=== PATIENT | female | born 1935 | race Caucasian/White ===

== ENCOUNTER 2016-10-14 13:48 | Outpatient (CLI) | payer MEDICARE, BC | END 2016-10-14 13:49 | disposition home or self-care (01) | DX: E78.2 Mixed hyperlipidemia (principal); D50.9 Iron deficiency anemia, unspecified ==

== ENCOUNTER 2017-01-21 08:00 | Outpatient (CLI) | payer MEDICARE, BC | END 2017-01-21 08:01 | DX: I10 Essential (primary) hypertension (principal); R68.89 Other general symptoms and signs; F41.9 Anxiety disorder, unspecified; D50.9 Iron deficiency anemia, unspecified ==

== ENCOUNTER 2017-03-06 12:43 | Outpatient (CLI) | payer MEDICARE, BC ==
--- NOTE | 2017-03-09 08:18 | Mammography Report ---
DIGITAL BILATERAL DIAGNOSTIC MAMMOGRAM: 03/06/2017 CLINICAL HISTORY: This is an 81-year-old female who has no family history of breast cancer. She has h ad no prior breast surgeries. She is now feeling left breast pain and possible lump. COMPARISON: 11/11/2007, 01/16/2009, 04/24/2010, 07/29/2011, 08/11/2012, 11/04/2013, 01/19/2015, 04/30. TECHNIQUE: Craniocaudad and oblique lateral views of each breast were obtained with [facility] full fiel d digital mammography. Mediolateral view of the left breast and axillary exaggerated craniocaudad vie w of the left breast were done to complement the present study. FINDINGS: The breasts are almost entirely composed of fat. No significant clusters of calcification are seen. No significant masses are noted. No change is seen. Although no significant abnormality is detected on patient's mammogram, a left breast ultrasound is b eing recommended to complement the present study. Ultrasound can show abnormalities especially in pat ients with clinical symptoms that are not demonstrable on mammography. IMPRESSION: THE BREASTS APPEAR RADIOGRAPHICALLY BENIGN. FOR REASONS DISCUSSED ABOVE, LEFT BREAST ULTRASOUND IS RECOMMENDED. ULTRASOUND WILL BE DONE TODAY PART OF PATIENT'S EVALUATION. BIRADS CATEGORY 0-INCOMPLETE. NEEDS ADDITIONAL IMAGING EVALUATION. LEFT BREAST ULTRASOUND WILL BE DON E TODAY PART OF PATIENT'S EVALUATION. STANDARD QUALIFYING STATEMENTS 1. This examination was reviewed with the aid of Computer-Aided Detection (CAD). 2. A negative or benign imaging report should not delay biopsy if clinically suspicious findings are present. Consider surgical consultation if warranted. More than 5% of cancers are not identified by manisha vasquez. 3. Dense breasts may obscure an underlying neoplasm. JOB #: [id number] EXT JOB #:[id number]
== END 2017-03-06 12:44 | disposition home or self-care (01) ==
LOC: DI 12:43
PROVIDERS: ATTEND Physician Assistant Medical
DX: N63 Unspecified lump in breast (principal)

== ENCOUNTER 2017-03-06 12:56 | Outpatient (CLI) | payer MEDICARE, BC ==
--- NOTE | 2017-03-06 16:33 | Ultrasound Report ---
THYROID ULTRASOUND: 03/06/2017 CLINICAL HISTORY: Dysphagia unspecified. TECHNIQUE: Real-time scanning was performed with sales representative facility services static images obtained. FINDINGS: Right lobe of the thyroid measures 4.1 cm x 1.4 cm x 1.1 cm for a volume of 3.3 mL. Right lobe of the thyroid shows a well-circumscribed solid nodule in its superior aspect measuring 0.5 cm x 0.3 cm x 0.4 cm. This shows some mildly enhanced vascular flow. Inferior aspect of the right lobe of the thyroid shows another solid nodule measuring 0.5 cm x 0.3 cm x 0.4 cm. Multiple small echogenic areas are noted in this aspect of the nodule. These may represe nt tiny calcifications. They do not shadow. Some mildly enhanced flow is noted in this nodule. The re are some additional even smaller nodules in the right lobe of the thyroid. Some of these are smal ler cystic nodules. Recommend these nodules be followed with repeat thyroid ultrasound in one year f or further evaluation. Left lobe of the thyroid measures 3.7 cm x 1.1 cm x 0.8 cm for a volume of 1.7 mL. Left lobe of the thyroid shows no significant nodules. Thyroid isthmus measures 0.18 cm in its AP diameter. IMPRESSION: SEVERAL SMALL SOLID NODULES ARE NOTED IN THE RIGHT LOBE OF THE THYROID. THE LARGEST ARE NOTED IN THE INFERIOR AND SUPERIOR ASPECT OF THE RIGHT LOBE. THEY EACH MEASURE 0.5 CM X 0.3 CM X 0.4 CM. THEY A RE WELL-CIRCUMSCRIBED AND HYPOECHOIC. THEY SHOULD BE FOLLOWED ACCORDING TO NELDA CRITERIA WITH A REPEA T THYROID ULTRASOUND IN ONE YEAR. THYROID SIZE APPEARS NORMAL BILATERALLY. JOB #: [id number] EXT JOB #:[id number]
--- NOTE | 2017-03-09 08:19 | Ultrasound Report ---
LEFT BREAST ULTRASOUND: 03/06/2017 CLINICAL HISTORY: An 81-year-old female who has had no family history of breast cancer. She has had n o breast surgeries. The patient has developed some tenderness and possible palpable lump in the upper outer quadrant of the left breast and across the left breast. She reports skin thickening in this ar ea as well as tenderness. Mammogram done today showed no significant abnormality. Left breast ultraso und is being done to complement the mammogram. TECHNIQUE: Real-time scanning was performed with medical customer service representative static images obtained. FINDINGS: Left breast ultrasound shows no significant abnormality. No masses are seen. No cysts are noted. The present ultrasound most likely indicates the patient's clinical symptoms do not reflect a signifi cant abnormality. IMPRESSION: NEGATIVE LEFT BREAST ULTRASOUND. BIRADS CATEGORY 1-NEGATIVE. RECOMMENDATION: ANNUAL BILATERAL SCREENING MAMMOGRAPHY. COMMENT: The patient was informed by Dr. Daniels of the benign results and encouraged her to return f or routine screening mammogram in one year. JOB #: [id number] EXT JOB #:
== END 2017-03-06 12:57 | disposition home or self-care (01) ==
LOC: DI 12:56
PROVIDERS: ATTEND Physician Assistant Medical
DX: N63 Unspecified lump in breast (principal); R13.10 Dysphagia, unspecified; E04.2 Nontoxic multinodular goiter
CPT/HCPCS: 76536; 76642

== ENCOUNTER 2017-10-27 07:49 | Outpatient (CLI) | payer MEDICARE, BC ==
[2017-10-27 12:27] LABS: BASOPHILS % (AUTO) 0.8 %; EOSINOPHILS # (AUTO) 0.2 10^3/uL (0.0-0.7); EOSINOPHILS % (AUTO) 4.2 %; HGB - HEMOGLOBIN 13.5 g/dL (12.0-16.0); LYMPHOCYTES # (AUTO) 1.3 10^3/uL (1.5-3.5); LYMPHOCYTES % (AUTO) 32.4 %; MEAN CORPUSCULAR HEMOGLOBIN 33.8 pg (27.0-31.0); MEAN CORPUSCULAR HGB CONC 34.5 g/dL (32.0-36.0); MEAN CORPUSCULAR VOLUME 97.9 fL (81.0-99.0); MEAN PLATELET VOLUME 7.7 fL (7.9-10.8); MONOCYTES # (AUTO) 0.5 10^3/uL (0.0-1.0); MONOCYTES % (AUTO) 13.1 %; NEUTROPHILS % (AUTO) 49.5 %; PLT - PLATELET COUNT 223 10^3/uL (130-450); RED BLOOD COUNT 3.99 10^6/uL (4.20-5.40)
[2017-10-27 14:10] LABS: ALBUMIN 4.1 g/dL (3.2-5.5); ALBUMIN/GLOBULIN RATIO 1.2 (1.0-2.2); ALKALINE PHOSPHATASE 46 IU/L (42-121); ALT ALANINE AMINOTRANSFERASE 18 IU/L (10-60); AST ASPARTATE AMINOTRANSFERASE 32 IU/L (10-42); BILIRUBIN,TOTAL 0.7 mg/dL (0.2-1.0); BUN - BLOOD UREA NITROGEN 18 mg/dL (6-20); CALCIUM 9.2 mg/dL (8.5-10.3); CARBON DIOXIDE - CO2 27 mmol/L (21-32); CHLORIDE 85 mmol/L (101-111); CHOL/HDL RATIO 3.1 (<4.4); CHOLESTEROL 194 mg/dL; CREATININE 0.9 mg/dL (0.4-1.0); GFR - MDRD 60 (>89); GLUCOSE 90 mg/dL (70-100); HDL CHOLESTEROL 62 mg/dL; LDL CHOLESTEROL,CALCULATED 123 mg/dL; SODIUM 124 mmol/L (135-145); TOTAL PROTEIN 7.6 g/dL (6.7-8.2); VLDL CHOLESTEROL 9 mg/dL
== END 2017-10-27 07:50 | disposition home or self-care (01) ==
LOC: LAB.WCP 07:49
PROVIDERS: ATTEND Physician Assistant Medical
DX: I10 Essential (primary) hypertension (principal); D50.9 Iron deficiency anemia, unspecified
CPT/HCPCS: 36415; 80053; 80061; 83721; 85025

== ENCOUNTER 2017-10-27 12:48 | Outpatient (CLI) | payer MEDICARE, BC | END 2017-10-27 12:49 | disposition home or self-care (01) | LOC: DI 12:48 | PROVIDERS: ATTEND Physician Assistant Medical | DX: R01.1 Cardiac murmur, unspecified (principal); I08.3 Combined rheumatic disorders of mitral, aortic and tricuspid valves; I10 Essential (primary) hypertension; D50.9 Iron deficiency anemia, unspecified | CPT/HCPCS: 36415; 80053; 80061; 83721; 85025; 93306 ==

== ENCOUNTER 2017-12-26 07:25 | Emergency (ER) | payer MEDICARE, BC ==
--- NOTE | 2017-12-26 07:55 | ED Physician Documentation ---
PD HPI NVD - Stated complaint Stated Complaint: BLOODY DIARRHEA - Chief complaint Chief Complaint: General - History obtained from History obtained from: Patient - History of Present Illness Timing - onset: How many days ago (6-7) Timing - duration: Days (6-7) Timing - details: Gradual onset, Still present (had persistent diarrhea for 5-6 days and then yesterday took imodium last night and then again overnight. Less to no diarrhea today but did not small output of mucous and some bloody watery small amount. Had some lower abd cramps. Has had intermittent LLQ cramps for the week. Did not note any blood in diarrhea the past week, just today.) Associated symptoms: Abdominal pain (intermittent cramping). No: Fever, Loss of appetite, Weight loss Contributing factors: No: Sick contact, Bad food, Travel, Recent antibiotics, Anticoagulated Similar symptoms before: Has not had sx before Recently seen: Not recently seen Review of Systems Constitutional: denies: Fever, Chills, Myalgias Nose: denies: Rhinorrhea / runny nose, Congestion Throat: denies: Sore throat Cardiac: denies: Chest pain / pressure Respiratory: denies: Cough GI: reports: Abdominal Pain, Diarrhea, Bloody / black stool. denies: Abdominal Swelling, Nausea, Vomiting, Constipation : denies: Dysuria, Frequency Skin: denies: Rash, Lesions Neurologic: reports: Generalized weakness. denies: Focal weakness, Numbness, Near syncope Endocrine: denies: Weight loss, Easy bruising / bleeding PD PAST MEDICAL HISTORY - Past Medical History Cardiovascular: Hypertension Respiratory: None Endocrine/Autoimmune: None GI: None : Incontinence HEENT: None Psych: Anxiety Musculoskeletal: Osteoporosis Derm: None - Past Surgical History Past Surgical History: Yes Ortho: Carpal Tunnel surgery HEENT: Cataracts - Present Medications Home Medications: Ambulatory Orders Medication Instructions Recorded Confirmed ALPRAZolam [Xanax] 0.25 mg PO PRN 03/23/13 04/06/13 Amlodipine Besylate 5 mg PO BID 03/23/13 04/06/13 Citalopram [CeleXA] 20 mg PO DAILY 03/23/1312/26/18 Losartan/Hydrochlorothiazide 1 each PO DAILY 03/23/13 04/06/13 [Losartan-Hctz 100-25 mg Tab] Meloxicam 7.5 mg PO BID 03/23/13 04/06/13 Vit D3-Vit K/Berberine/Hops 1 each PO 03/23/13 04/06/13 [Ostera Tablet] Omeprazole [PriLOSEC] 1 cap PO DAILY 12/26/17 12/26/17 - Allergies Allergies/Adverse Reactions: Allergies Allergy/AdvReac Type Severity Reaction Status Date / Time celecoxib [From Celebrex] Allergy Intermediate Itching Verified 12/26/17 07:38 Penicillins Allergy Rash Verified 12/26/17 07:38 rofecoxib [From Vioxx] Allergy unkown Verified 12/26/17 07:38 Sulfa (Sulfonamide Allergy Rash Verified 12/26/17 07:38 Antibiotics) - Living Situation Living Situation: reports: Alone Living Arrangement: reports: Assisted living - Social History Does the pt smoke?: No Smoking Status: Never smoker Does the pt drink ETOH?: No Does the pt have substance abuse?: No - Family History Family history: reports: Non contributory - Immunizations Immunizations are current?: Yes - POLST Patient has POLST: Yes POLST Status: DNR PD ED PE NORMAL - Vitals Vital signs reviewed: Yes - General General: Alert and oriented X 3, No acute distress, Well developed/nourished - HEENT HEENT: Moist mucous membranes, Pharynx benign - Neck Neck: Supple, no meningeal sign, No adenopathy - Cardiac Cardiac: RRR, No murmur - Respiratory Respiratory: Clear bilaterally - Abdomen Abdomen: Normal bowel sounds, Soft, Non distended, No organomegaly, Other (mild tenderness without guarding nor percussion tender in LLQ. ) - Female Female : Deferred - Rectal Rectal: Deferred - Back Back: No CVA TTP - Derm Derm: Normal color - Extremities Extremities: No deformity, Normal ROM s pain, No edema - Neuro Neuro: Alert and oriented X 3, No motor deficit, Normal speech Results - Vitals Vitals: Vital Signs - 24 hr 12/26/17 07:34 Temperature 36.5 C Heart Rate 71 Respiratory 16 Rate Blood Pressure 141/68 H O2 Saturation 99 Oxygen O2 Source Room air - Labs Labs: Laboratory Tests 12/26/17 12/26/17 08:41 08:41 WBC 8.8 RBC 4.10 L Hgb 13.6 Hct 39.8 MCV 97.0 MCH 33.0 H MCHC 34.1 RDW 13.7 Plt Count 220 MPV 7.3 L Neut # 6.4 Lymph # 0.8 L [place] # 0.7 Eos # 0.8 H Baso # 0.1 Absolute Nucleated RBC 0.00 Nucleated RBC % 0.0 Sodium 129 L Potassium 3.5 Chloride 93 L Carbon Dioxide 27 Anion Gap 9.0 BUN 17 Creatinine 0.9 Estimated GFR (MDRD) 60 L Glucose 94 Calcium 9.2 Magnesium 1.3 L Total Bilirubin 0.6 AST 22 ALT 16 Alkaline Phosphatase 59 Total Protein 7.0 Albumin 3.9 Globulin 3.1 Albumin/Globulin Ratio 1.3 Lipase 35 - Rads (name of study) abd CT Radiology: Prelim report reviewed (no diverticulitis. Some fluid or edema in endometrium, suggest outpatient U/S if further testing.), EMP read contemporaneously PD MEDICAL DECISION MAKING - ED course Complexity details: reviewed results (no focal findings (no diverticulitis in particular).), considered differential (consider C.Diff or bacterial cause, versus viral colitis or food related. The diarrhea has tapered with 2 doses of Imodium. Benign exam with just mild LLQ tenderness. ), d/w patient Departure - Departure Disposition: 01 Home, Self Care Clinical Impression: Bloody diarrhea Condition: Stable Record reviewed to determine appropriate education?: Yes Instructions: ED Diet Vomiting Diarrhea Follow-Up: Latonia Teixeira PA-C [Primary Care Provider] - Comments: If the diarrhea persists, obtain a stool sample at home and bring it to your primary care for culture testing or you could bring it to the lab here at the hospital. This would be to try to identify if there is a bacterial cause that needs specific treating. Otherwise these can be viral or may have just been an irritation of the colon related to dietary or a little of all of that. If the diarrhea tapers and goes away as well as the mucus in blood, then no particular treatment is needed. Drink lots of fluids. Your CT scan does not show any focal infection such as diverticulitis. Obviously the colon is irritated from your symptoms (colitis). Your blood tests are good with the exception of a slightly low magnesium and potassium. We gave you supplements here in the ER for those. You can continue the Imodium periodically if needed for diarrhea after obtaining a stool sample.
[2017-12-26] MEDS ORDERED: SODIUM CHLORIDE 0.9% 1,000 ML IV ONE (08:27)
[2017-12-26 08:53] LABS: BASOPHILS # (AUTO) 0.1 10^3/uL (0.0-0.1); BASOPHILS % (AUTO) 0.8 %; EOSINOPHILS # (AUTO) 0.8 10^3/uL (0.0-0.7); EOSINOPHILS % (AUTO) 9.4 %; HGB - HEMOGLOBIN 13.6 g/dL (12.0-16.0); LYMPHOCYTES # (AUTO) 0.8 10^3/uL (1.5-3.5); LYMPHOCYTES % (AUTO) 8.6 %; MEAN CORPUSCULAR HGB CONC 34.1 g/dL (32.0-36.0); MEAN PLATELET VOLUME 7.3 fL (7.9-10.8); MONOCYTES # (AUTO) 0.7 10^3/uL (0.0-1.0); NEUTROPHILS # (AUTO) 6.4 10^3/uL (1.5-6.6); NEUTROPHILS % (AUTO) 73.2 %; PLT - PLATELET COUNT 220 10^3/uL (130-450); RED CELL DISTRIBUTION WIDTH 13.7 % (12.0-15.0); WHITE BLOOD COUNT 8.8 x10^3/uL (4.8-10.8)
[2017-12-26] MEDS ORDERED: IOPAMIDOL-300 100 ML VIAL ONE (09:03)
[2017-12-26 09:20] LABS: ALBUMIN 3.9 g/dL (3.2-5.5); ALBUMIN/GLOBULIN RATIO 1.3 (1.0-2.2); BILIRUBIN,TOTAL 0.6 mg/dL (0.2-1.0); CALCIUM 9.2 mg/dL (8.5-10.3); CREATININE 0.9 mg/dL (0.4-1.0); MAGNESIUM 1.3 mg/dL (1.7-2.8)
[2017-12-26] MEDS ORDERED: POTASSIUM BICARB 25 MEQ TABLET PO STA (09:45)
[2017-12-26] MEDS ORDERED: MAGNESIUM SULFATE 2 GRAM 2 GM/50 ML BAG IV ONE (09:45)
[2017-12-26] MEDS ORDERED: IOPAMIDOL-300 100 ML VIAL IVP ONE (09:49)
--- NOTE | 2017-12-26 10:23 | CT Preliminary Report ---
Exam: CT ABDOMEN/PELVIS W/ IMPRESSION: 1. No acute intra-abdominal abnormality. Specifically no evidence of bowel obstruction or inflammatio n and no significant diverticulosis or evidence of acute diverticulitis. 2. Small amount of presumed fluid within the endometrial canal, though this could represent abnormal endometrial thickening. Recommend nonemergent outpatient pelvic ultrasound for further evaluation. 3. Small hiatal hernia. 3. Additional findings as above. [facility] SITE ID: [id number]
--- NOTE | 2017-12-26 10:47 | CT Report ---
EXAM: CT ABDOMEN AND PELVIS EXAM DATE: 12/26/2017 09:49 AM. CLINICAL HISTORY: Left lower quadrant pain and diarrhea for several days. COMPARISONS: CT of the abdomen and pelvis without contrast 04/06/2013. TECHNIQUE: Routine helical CT imaging was performed through the abdomen and pelvis. IV contrast: Isov ue 300 100 mL. Enteric contrast: No. Reconstructions: Coronal and sagittal. In accordance with CT protocol optimization, one or more of the following dose reduction techniques w ere utilized for this exam: automated exposure control, adjustment of mA and/or KV based on patient s ize, or use of iterative reconstructive technique. FINDINGS: Lung Bases: No significant effusion. No mass or consolidation. There are coronary artery calcificatio ns as well as moderate to severe calcification of the aortic valve including the leaflets. -There is a small hiatal hernia. Liver: No new or enlarging hepatic lesions. Multiple hypodense lesions are present within the liver, incompletely characterized but statistically likely cysts or hemangiomata in the absence of known mal ignancy. The lesion within the central left hepatic lobe, likely segment 2/3 adjacent to the falcifor m ligament, has decreased in size now 14 x 17 mm, previously 30 x 35 mm with minimal peripheral calci fication slightly increased in the interval (12/04). Gallbladder/Bile Ducts: Unremarkable. Spleen: Normal. Pancreas: Normal. Adrenal Glands: Normal. Kidneys: Normal. No masses or hydronephrosis. Peritoneal Cavity/Bowel: -No free fluid. No extraluminal gas. -Post surgical changes present near the gastroesophageal junction with small hiatal hernia as above. No evidence of bowel obstruction or inflammation. No significant diverticulosis or evidence of acute diverticulitis. The appendix is not visualized. -No abnormally enlarged lymph nodes. Pelvic Organs: -Sensitivity reduced due to lack of enteric contrast and a paucity of intraabdominal fat. -The urinary bladder is unremarkable. -The uterus is diminutive with possible fluid present within the endometrial canal. -No evidence of adnexal mass. Vasculature: No abdominal aortic aneurysm with severe calcific atherosclerosis predominating in the i nfrarenal abdominal aorta and iliac arteries. Bones: There is diffuse osseous demineralization. No acute osseous abnormality. No suspicious focal o sseous lesion. There is S-shaped thoracolumbar scoliosis, convex right in the lumbar spine with assoc iated degenerative changes. L5 pars defects with grade 2 anterolisthesis of L5 on S1 again noted. Other: Small bilateral fat-containing inguinal hernias. No bowel containing abdominal wall hernia. IMPRESSION: 1. No acute intraabdominal abnormality. Specifically no evidence of bowel obstruction or inflammation and no significant diverticulosis or evidence of acute diverticulitis. 2. Small amount of presumed fluid within the endometrial canal, though this could represent abnormal endometrial thickening. Recommend nonemergent outpatient pelvic ultrasound for further evaluation. 3. Small hiatal hernia. 4. Additional findings as above. [facility] Referring Provider Line: [phone] SITE ID: [id number]
[2017-12-26 11:03] VITALS: BP 115/59
== END 2017-12-26 11:03 | disposition home or self-care (01) ==
LOC: ED 07:25
DX: R19.5 Other fecal abnormalities (principal); R19.7 Diarrhea, unspecified; I10 Essential (primary) hypertension
CPT/HCPCS: 36415; 74177; 80053; 83690; 83735; 85025; 96361; 96365; 99283; 99284; A9270; Q9967

== ENCOUNTER 2018-04-06 14:41 | Outpatient (CLI) | payer MEDICARE, BC ==
--- NOTE | 2018-04-08 16:29 | Mammography Report ---
Procedure Date: 04/06/2018 Accession Number: [id number] / [id number] Procedure: MGN - Screening Mammo Dig Bilat CPT Code: FULL RESULT: EXAM: Screening Mammo Dig Bilat DATE: 04/06/2018 3:07 PM CLINICAL HISTORY: 82-year-old female presents for screening mammogram. TECHNIQUE: Bilateral CC and MLO views were obtained. COMPARISON: 03/06/2017, 04/30/2016, 01/19/2015, 11/04/2013. FINDINGS: The breasts demonstrate diffuse fatty replacement bilaterally. No suspicious masses, clustered microcalcifications, or regions of architectural distortion are identified. IMPRESSION: Negative examination RECOMMENDATION: Routine annual screening unless otherwise clinically indicated. BIRADS CATEGORY 1: Negative STANDARD QUALIFYING STATEMENTS: 1. This examination was reviewed with the aid of Computer-Aided Detection (CAD). 2. A negative or benign imaging report should not delay biopsy if clinically suspicious findings are present. Consider surgical consultation if warrented. More than 5% of cancers are not identified by imaging. 3. Dense breasts may obscure an underlying neoplasm.
== END 2018-04-06 14:42 | disposition home or self-care (01) ==
LOC: DI.N 14:41
PROVIDERS: ATTEND Physician Assistant Medical
DX: Z12.31 Encounter for screening mammogram for malignant neoplasm of breast (principal)
CPT/HCPCS: 77067

== ENCOUNTER 2018-04-23 14:21 | Outpatient (CLI) | payer MEDICARE, BC ==
--- NOTE | 2018-04-24 14:39 | MRI Report ---
Procedure Date: 04/23/2018 Accession Number: [id number] / [id number] Procedure: MRI - Lumbar Spine W/O CPT Code: FULL RESULT: EXAM: MRI LUMBAR SPINE WITHOUT CONTRAST EXAM DATE: 04/23/2018 03:51 PM. CLINICAL HISTORY: Chronic low back pain. COMPARISON: Lumbar spine 04/25/2010. TECHNIQUE: Multiplanar, multisequence T1-weighted and fluid-sensitive sequences of the lumbar spine from T12 to S1 without contrast. Other: None. FINDINGS: Spinal Canal: The conus terminates at L1-L2. The conus medullaris and cauda equina are unremarkable. Alignment: There is a 36 degree dextroscoliosis centered on L2. There is an 11 mm grade 2 anterolisthesis at L5-S1, and a 3 mm grade 1 retrolisthesis at L4-L5. Bone Marrow: Five [id number]-[id number]-[id number] lumbar vertebral bodies are assumed. Mixed Modic type I and 2 change at the L3-L4 and L4-L5 levels. Bilateral L5 pars defects. Disk Levels/Facets: T12-L1: Malalignment and facet joint osteoarthritis causes mild canal narrowing. There is mild foraminal narrowing. L1-L2: There is disk desiccation and loss of disk height. There are circumferential osteophytes. There is mild facet joint osteoarthritis. The findings cause mild canal narrowing. There is mild right and moderate left foraminal narrowing. Osteophytes contact the left L1 nerve root. L2-L3: There is disk desiccation and loss of disk height. There are circumferential osteophytes. There is moderate facet joint osteoarthritis and ligamentum flavum redundancy causing mild canal narrowing. There is severe left and moderate right foraminal narrowing. The left L2 nerve root is compressed in the neural foramen. L3-L4: There is severe disk desiccation and loss of disk height. There are circumferential osteophytes with moderate facet joint osteoarthritis causing moderate canal narrowing with effacement of the thecal sac. There is severe bilateral foraminal narrowing, compressing both L3 nerve roots. L4-L5: There is disk desiccation and loss of disk height. There is moderate right and mild left facet joint osteoarthritis. Malalignment causes mild canal narrowing. There is a severe right and moderate left foraminal narrowing. The right L4 nerve root is compressed within the foramen. L5-S1: There are bilateral L5 pars defects. The anterolisthesis combines with facet joint osteoarthritis and ligamentum flavum redundancy to cause mild canal narrowing. There is severe bilateral foraminal narrowing compressing both L5 nerve roots. Musculature: Normal. No edema or fatty atrophy. Other: The partially visualized retroperitoneum is unremarkable. IMPRESSION: 1. Severe degenerative change with a dextroscoliosis as on the prior study. 2. Degenerative change has not altered significantly since the prior study. 3. Bilateral L5 pars defects with a grade 2 anterior spondylolisthesis. Grade 1 retrolisthesis at L4-L5 and L3-L4. 4. Moderate canal narrowing at L3-L4. 5. Multilevel foraminal narrowing compressing multiple nerve roots. Comment: The following findings are so common in adults without low back pain that while we report their presence, they must be interpreted with caution and in the context of the clinical situation. (Reference Bertramk et al, Spine 2001) Prevalence of findings in patients without low back pain: Disk degeneration (any evidence): 92% Disk desiccation/T2 signal loss: 83% Disk height loss: 56% Disk bulge: 64% Disk protrusion: 32% Annular tear/high intensity zone: 38% [facility]
== END 2018-04-23 14:22 | disposition home or self-care (01) ==
LOC: DI 14:21
PROVIDERS: ATTEND Physician Assistant Medical
DX: M47.816 Spondylosis without myelopathy or radiculopathy, lumbar region (principal); M43.16 Spondylolisthesis, lumbar region; M41.86 Other forms of scoliosis, lumbar region; M48.061 Spinal stenosis, lumbar region without neurogenic claudication; M25.78 Osteophyte, vertebrae
CPT/HCPCS: 72148

== ENCOUNTER 2018-10-12 08:20 | Outpatient (CLI) | payer MEDICARE, BC ==
[2018-10-12 13:14] LABS: BASOPHILS # (AUTO) 0.1 10^3/uL (0.0-0.1); BASOPHILS % (AUTO) 2.1 %; EOSINOPHILS # (AUTO) 0.3 10^3/uL (0.0-0.7); EOSINOPHILS % (AUTO) 5.8 %; HGB - HEMOGLOBIN 13.3 g/dL (12.0-16.0); LYMPHOCYTES # (AUTO) 1.2 10^3/uL (1.5-3.5); LYMPHOCYTES % (AUTO) 24.8 %; MEAN CORPUSCULAR HEMOGLOBIN 33.9 pg (27.0-31.0); MEAN CORPUSCULAR HGB CONC 34.2 g/dL (32.0-36.0); MEAN CORPUSCULAR VOLUME 99.1 fL (81.0-99.0); MEAN PLATELET VOLUME 7.6 fL (7.9-10.8); MONOCYTES # (AUTO) 0.8 10^3/uL (0.0-1.0); MONOCYTES % (AUTO) 15.2 %; NEUTROPHILS # (AUTO) 2.6 10^3/uL (1.5-6.6); NEUTROPHILS % (AUTO) 52.1 %; PLT - PLATELET COUNT 191 10^3/uL (130-450); RED BLOOD COUNT 3.92 10^6/uL (4.20-5.40); RED CELL DISTRIBUTION WIDTH 13.2 % (12.0-15.0)
[2018-10-12 13:21] LABS: ALBUMIN 3.5 g/dL (3.2-5.5); ALBUMIN/GLOBULIN RATIO 0.9 (1.0-2.2); ALKALINE PHOSPHATASE 100 IU/L (42-121); ALT ALANINE AMINOTRANSFERASE 23 IU/L (10-60); AST ASPARTATE AMINOTRANSFERASE 39 IU/L (10-42); BILIRUBIN,TOTAL 0.7 mg/dL (0.2-1.0); BUN - BLOOD UREA NITROGEN 26 mg/dL (6-20); CALCIUM 9.2 mg/dL (8.5-10.3); CARBON DIOXIDE - CO2 28 mmol/L (21-32); CHLORIDE 97 mmol/L (101-111); CHOL/HDL RATIO 3.8 (<4.4); CHOLESTEROL 187 mg/dL; CREATININE 0.9 mg/dL (0.4-1.0); GFR - MDRD 60 (>89); GLUCOSE 93 mg/dL (70-100); HDL CHOLESTEROL 49 mg/dL; SODIUM 134 mmol/L (135-145); TOTAL PROTEIN 7.5 g/dL (6.7-8.2)
[2018-10-12 13:50] LABS: LDL CHOLESTEROL,DIRECT 127 mg/dL; LDLD/HDL RATIO 2.6 (<4.4)
== END 2018-10-12 23:59 | disposition home or self-care (01) ==
LOC: LAB.WCP 08:20
PROVIDERS: ATTEND Physician Assistant Medical
DX: E78.2 Mixed hyperlipidemia (principal)
CPT/HCPCS: 36415; 80053; 80061; 83721; 85025

== ENCOUNTER 2018-12-29 08:00 | Outpatient (CLI) | payer MEDICARE, BC ==
[2018-12-29 19:00] LABS: GLUCOSE, URINE (UA) NEGATIVE (NEGATIVE); KETONES,URINE (UA) 15 mg/dL (NEGATIVE); LEUKOCYTE ESTERASE, URINE NEGATIVE (NEGATIVE); NITRITE,URINE NEGATIVE (NEGATIVE); OCCULT BLOOD,URINE TRACE-INTA (NEGATIVE); PROTEIN,URINE NEGATIVE (NEGATIVE); UROBILINOGEN,URINE 0.2 (NORMAL) E.U./dL (NORMAL)
[2018-12-29 19:06] LABS: BASOPHILS % (AUTO) 0.6 %; EOSINOPHILS % (AUTO) 0.3 %; HGB - HEMOGLOBIN 15.3 g/dL (12.0-16.0); LYMPHOCYTES # (AUTO) 1.4 10^3/uL (1.5-3.5); LYMPHOCYTES % (AUTO) 24.5 %; MEAN CORPUSCULAR HEMOGLOBIN 32.8 pg (27.0-31.0); MEAN CORPUSCULAR HGB CONC 33.3 g/dL (32.0-36.0); MEAN CORPUSCULAR VOLUME 98.5 fL (81.0-99.0); MEAN PLATELET VOLUME 7.5 fL (7.9-10.8); MONOCYTES # (AUTO) 0.5 10^3/uL (0.0-1.0); MONOCYTES % (AUTO) 9.4 %; NEUTROPHILS # (AUTO) 3.7 10^3/uL (1.5-6.6); NEUTROPHILS % (AUTO) 65.2 %; PLT - PLATELET COUNT 254 10^3/uL (130-450); RED BLOOD COUNT 4.67 10^6/uL (4.20-5.40); RED CELL DISTRIBUTION WIDTH 13.8 % (12.0-15.0); WHITE BLOOD COUNT 5.7 x10^3/uL (4.8-10.8)
[2018-12-29 19:09] LABS: BACTERIA,URINE Rare /HPF (None Seen); BILIRUBIN,URINE SMALL (NEGATIVE); CASTS, URINE 0-2 Hyaline Casts /LPF; CLARITY,URINE HAZY (CLEAR); ICTOTEST,URINE POSITIVE; MUCUS,URINE Few Strands; SQUAMOUS EPITHELIAL CELL,UR RARE Squamous (<= Few)
[2018-12-29 19:16] LABS: ALBUMIN 3.9 g/dL (3.2-5.5); ALBUMIN/GLOBULIN RATIO 0.9 (1.0-2.2); CALCIUM 9.4 mg/dL (8.5-10.3); TOTAL PROTEIN 8.3 g/dL (6.7-8.2)
== END 2018-12-29 08:01 | disposition home or self-care (01) ==
LOC: LAB.WCP 08:00
PROVIDERS: ATTEND Physician Assistant
DX: R53.83 Other fatigue (principal)
CPT/HCPCS: 36415; 80053; 81001; 81002; 85025; 87086

== ENCOUNTER 2018-12-31 08:00 | Outpatient (CLI) | payer MEDICARE, BC | END 2018-12-31 23:59 | disposition home or self-care (01) | LOC: LAB.R 08:00 | PROVIDERS: ATTEND Physician Assistant Medical | DX: E78.1 Pure hyperglyceridemia (principal) | CPT/HCPCS: 84300 ==

== ENCOUNTER 2018-12-31 08:00 | Outpatient (CLI) | payer MEDICARE, BC | END 2018-12-31 08:01 | disposition home or self-care (01) | LOC: LAB.WCP 08:00 | PROVIDERS: ATTEND Physician Assistant Medical | DX: E87.1 Hypo-osmolality and hyponatremia (principal); R53.83 Other fatigue; M79.602 Pain in left arm; E78.1 Pure hyperglyceridemia | CPT/HCPCS: 36415; 82533; 84300; 84484 ==

== ENCOUNTER 2019-01-14 10:50 | Outpatient (CLI) | payer MEDICARE, BC ==
[2019-01-14] MEDS ORDERED: IOVERSOL 320 100 ML VIAL IVP ONE (11:30)
[2019-01-14] MEDS ORDERED: IOVERSOL 320 50 ML VIAL ONE (11:34)
--- NOTE | 2019-01-15 21:01 | CT Report ---
Reason: WEIGHT LOSS Procedure Date: 01/14/2019 Accession Number: [id number] / [id number] Procedure: CT - Abdomen/Pelvis W CPT Code: FULL RESULT: EXAM: CT ABDOMEN AND PELVIS EXAM DATE: 01/14/2019 01:04 PM. CLINICAL HISTORY: Weight loss. COMPARISONS: ABDOMEN/PELVIS W/ 12/26/2017 9:37 AM. CHEST W/ 01/14/2019 12:58 PM. TECHNIQUE: Routine helical CT imaging was performed through the abdomen and pelvis. IV contrast: Optiray-320, 100 mL . Enteric contrast: Yes. Reconstructions: Coronal and sagittal. In accordance with CT protocol optimization, one or more of the following dose reduction techniques were utilized for this exam: automated exposure control, adjustment of mA and/or KV based on patient size, or use of iterative reconstructive technique. FINDINGS: Lung Bases: Please see separate chest CT report. Small hiatal hernia. Liver: Scattered cysts again noted. No suspicious masses. Gallbladder/Bile Ducts: Unremarkable. Spleen: Unremarkable. Pancreas: Unremarkable. Adrenal Glands: Unremarkable. Kidneys: Unremarkable. No suspicious masses or hydronephrosis. Peritoneal Cavity/Bowel: No bowel obstruction or inflammatory process seen. No free air or significant free fluid. No masses or adenopathy. Moderate stool burden. Pelvic Organs: Bladder, uterus, and adnexa appear unremarkable. Vasculature: Severe atherosclerotic disease of the aorta and branches. No aneurysm seen. Bones: No acute or aggressive appearing abnormality. Moderate thoracolumbar region dextroscoliosis. Severe lumbar degenerative changes. Other: Small bilateral fat-containing inguinal hernias without apparent complication. Mild diffuse soft tissue edema similar to the prior study and could reflect some degree of protein calorie malnutrition. IMPRESSION: 1. No acute process seen in the abdomen or pelvis. Please see separate chest CT report. 2. No etiology for weight loss seen. 3. Severe atherosclerotic disease of the aorta and branches. 4. Moderate stool burden. [facility]
--- NOTE | 2019-01-17 12:21 | CT Report ---
Reason: WEIGHT LOSS Procedure Date: 01/14/2019 Accession Number: [id number] / [id number] Procedure: CT - CHEST W CPT Code: FULL RESULT: EXAM: CT CHEST EXAM DATE: 01/14/2019 01:04 PM. CLINICAL HISTORY: Weight loss and pain. COMPARISONS: None. TECHNIQUE: Routine helical CT imaging was performed through the chest. IV contrast: 100 mL Optiray 320. Reconstructions: Coronal and sagittal. In accordance with CT protocol optimization, one or more of the following dose reduction techniques were utilized for this exam: automated exposure control, adjustment of mA and/or KV based on patient size, or use of iterative reconstructive technique. FINDINGS: Lungs/Pleura: 2 mm left upper lobe nodule image 26 series 4. 2 mm right upper lobe nodule image 30. 3 mm right lower lobe nodule image 34. There is no lobar consolidation. There is no suspicious lung mass. There is no pleural effusion or pneumothorax. Mediastinum: Normal. No adenopathy or masses. The heart and great vessels are normal. Bones: No aggressive osseous lesions detected. Visualized Abdomen: Interpreted separately. Visualized portion of the hepatic contour appears nodular. Other: None. IMPRESSION: The visualized portion of the liver suggests possibility of nodular contour. Please correlate this to a potential history of cirrhosis or risk factors. If the patient is considered at risk for cirrhosis, consider MRI with and without contrast liver mass protocol given the clinical presentation of weight loss and pain. No suspicious thoracic adenopathy or lung mass. Scattered pulmonary nodules measuring up to 3 mm. [facility]
== END 2019-01-14 10:51 | disposition home or self-care (01) ==
LOC: DI 10:50
PROVIDERS: ATTEND Physician Assistant Medical
DX: R63.4 Abnormal weight loss (principal); R91.8 Other nonspecific abnormal finding of lung field; I70.0 Atherosclerosis of aorta
CPT/HCPCS: 71260; 74177

== ENCOUNTER 2019-02-20 10:39 | Emergency (ER) | payer MEDICARE, BC ==
--- NOTE | 2019-02-20 12:22 | ED Physician Documentation ---
PD HPI ABD PAIN - Stated complaint Stated Complaint: FEMALE - Chief complaint Chief Complaint: General - History obtained from History obtained from: Patient - History of Present Illness Timing - onset: How many days ago (few) Timing - duration: Days (few) Timing - details: Gradual onset (has problem with less stools out generally. Is on recently Mirilax from PCP, daily. Has not had much BMs, and then none the past 2 days. Feeling of rectal fullness, as though she needs to go. Gave herself an emena at home with just some brown fluid out.) Quality: Fullness/distended (feeling of some general abd fullness, and also feeling of rectal fullness.). No: Cramping, Aching Improved by: BM. No: Eating, Laying still Worsened by: No: Eating, Palpation Associated symptoms: Constipation. No: Fever, Nausea, Vomiting, Hematemesis, Diarrhea, Hematochezia, Dysuria Similar symptoms before: Diagnosis (constipation) Recently seen: Clinic (seen by PMD and Rx Miralax daily.) Review of Systems Constitutional: denies: Fever, Chills Nose: denies: Rhinorrhea / runny nose, Congestion Throat: denies: Sore throat Respiratory: denies: Cough GI: reports: Nausea, Constipation. denies: Abdominal Pain, Vomiting, Diarrhea, Bloody / black stool : denies: Dysuria, Frequency PD PAST MEDICAL HISTORY - Past Medical History Past Medical History: Yes Cardiovascular: Hypertension Respiratory: None Endocrine/Autoimmune: None GI: None : Incontinence HEENT: None Psych: Anxiety Musculoskeletal: Osteoporosis Derm: None - Past Surgical History Past Surgical History: Yes Ortho: Carpal Tunnel surgery HEENT: Cataracts - Present Medications Home Medications: Ambulatory Orders Medication Instructions Recorded Confirmed Amlodipine Besylate 5 mg PO BID 03/23/13 02/20/19 Losartan/Hydrochlorothiazide 1 each PO DAILY 03/23/13 02/20/19 [Losartan-Hctz 100-25 mg Tab] Meloxicam 7.5 mg PO BID 03/23/13 02/20/19 Omeprazole [PriLOSEC] 1 cap PO DAILY 12/26/17 02/20/19 Sertraline [Zoloft] 0 mg PO DAILY 02/20/19 02/20/19 - Allergies Allergies/Adverse Reactions: Allergies Allergy/AdvReac Type Severity Reaction Status Date / Time celecoxib [From Celebrex] Allergy Intermediate Itching Verified 02/20/19 10:47 Penicillins Allergy Rash Verified 02/20/19 10:47 rofecoxib [From Vioxx] Allergy unkown Verified 02/20/19 10:47 Sulfa (Sulfonamide Allergy Rash Verified 02/20/19 10:47 Antibiotics) - Social History Does the pt smoke?: No Smoking Status: Never smoker Does the pt drink ETOH?: No Does the pt have substance abuse?: No - Immunizations Immunizations are current?: Yes - POLST Patient has POLST: Yes POLST Status: DNR PD ED PE NORMAL - Vitals Vital signs reviewed: Yes - General General: Alert and oriented X 3, No acute distress, Well developed/nourished - Neck Neck: Supple, no meningeal sign, No adenopathy - Cardiac Cardiac: RRR, No murmur - Respiratory Respiratory: Clear bilaterally - Abdomen Abdomen: Normal bowel sounds, Soft, No organomegaly, Other (distended moderately but not tender. Bowel sounds somewhat diminished. ) - Rectal Rectal: Other (small soft stool in vault. Guiac negative. ) - Back Back: No CVA TTP - Derm Derm: Normal color, Warm and dry - Extremities Extremities: No tenderness to palpate, Normal ROM s pain, No edema, No calf tenderness / cord - Neuro Neuro: Alert and oriented X 3, No motor deficit, Normal speech Results - Vitals Vitals: Oxygen O2 Source Room air - Rads (name of study) abd 2 view Radiology: Prelim report reviewed (increased stool markings and some air/fluid levels c/w either some ileus or could be partial obstruction. ), EMP read contemporaneously, See rad report PD MEDICAL DECISION MAKING - ED course Complexity details: reviewed results, considered differential (rectal is empty. Abd with some distension, but not tender. ), d/w patient Departure - Departure Disposition: 01 Home, Self Care Clinical Impression: Abdominal fullness Constipation Qualifiers: Constipation type: slow transit constipation Qualified Code(s): K59.01 - Slow transit constipation Condition: Stable Record reviewed to determine appropriate education?: Yes Instructions: ED Constipation Follow-Up: Latonia Teixeira PA-C [Primary Care Provider] - Comments: He did. He can use or continue your MiraLAX 2-3 times a day for the next couple of days and then decrease it as you are having regular or watery bowel movements. The x-ray showed a moderate to normal amount of stool and not really that excessive. There may be some slowing down of the intestine just related to irritation and given you have a feeling of fullness in the abdomen and rectum. This should improve with actually doing less laxative type medicines. The MiraLAX stool softener is still good. Recheck if not improved in the next couple of days. Discharge Date/Time: 02/20/19 15:05
[2019-02-20] MEDS ORDERED: MAGNESIUM CITRATE 296 ML BOTTLE PO STA (13:23)
[2019-02-20] MEDS ORDERED: MINERAL OIL ENEMA 133 ML BOTTLE RC STA (13:23)
--- NOTE | 2019-02-20 13:31 | XRAY Report ---
Reason: concern for constipation Procedure Date: 02/20/2019 Accession Number: [id number] / [id number] Procedure: XR - Abdomen 2 View X-Ray CPT Code: 17212 FULL RESULT: EXAM: ABDOMEN RADIOGRAPHY EXAM DATE: 02/20/2019 01:17 PM. CLINICAL HISTORY: Constipation. COMPARISON: UPPER GI 04/06/2013 12:36 PM. TECHNIQUE: 2 views. FINDINGS: Lung Bases: Unremarkable. Bowel Gas Pattern: Nonobstructive bowel gas pattern is seen with gas scattered in the small and large bowel loops. Associated air fluid levels are seen on upright view. Stool volume appears within normal limits. Free Air: None. Other: Diffuse degenerative and scoliotic changes are seen in the spine. No acute osseous abnormality is demonstrated. IMPRESSION: Nonobstructive bowel gas pattern suggested. Multiple air-fluid levels seen which could be related to minor ileus. Stool volume appears within normal limits. RADIA
[2019-02-20 14:53] VITALS: BP 130/86
== END 2019-02-20 15:05 | disposition home or self-care (01) ==
LOC: ED 10:39
DX: K59.01 Slow transit constipation (principal); I10 Essential (primary) hypertension
CPT/HCPCS: 74019; 99282; 99283; A9270

== ENCOUNTER 2019-03-01 14:22 | Outpatient (CLI) | payer MEDICARE, BC ==
--- NOTE | 2019-03-02 11:06 | Ultrasound Report ---
Reason: WEIGHT LOSS Procedure Date: 03/01/2019 Accession Number: [id number] / [id number] Procedure: US - Pelvic w/Transvaginal CPT Code: FULL RESULT: EXAM: PELVIC ULTRASOUND EXAM DATE: 03/01/2019 04:16 PM. CLINICAL HISTORY: Weight loss. Difficulty urinating. Constipation. The right oophorectomy. Left ovary intact. COMPARISON: ABDOMEN/PELVIS W/ 01/14/2019 12:58 PM. TECHNIQUE: Realtime transabdominal pelvic scan performed to identify the uterus and adnexa and as an overview of other pelvic structures, followed by transvaginal scan to provide greater detail of the uterus and adnexa, with static image documentation. FINDINGS: Uterus: 4.9 x 1.4 x 3.0 cm, volume 3.6 cc. Retroverted anteflexed position. Normal overall size and echotexture. Masses: None. Endometrium: Up to 2.5 mm. A small amount of fluid is seen within the endometrium, not expected in this age group. Cervix: Unremarkable. Right Ovary: Not seen. Left Ovary: 2.8 x 1.9 x 3.4 cm, volume 4.4 cc. The ovary demonstrates an irregular lobulated shape, demonstrates internal vascularity by spectral Doppler with vascular supply extending into an echogenic focus within the ovary which measures 1.1 x 0.6 cm. The ovary is intimately associated with the bladder. Free Fluid: None. Other: None. IMPRESSION: Small quantity of fluid within the endometrium. Unexpected appearance of the left ovary with heterogeneous and lobulated outline as well as prominent overall dimensions for the postmenopausal patient. Recommendation: Given the presentation and history, recommend gynecologic referral. RADIA
== END 2019-03-01 14:23 | disposition home or self-care (01) ==
LOC: DI 14:22
PROVIDERS: ATTEND Physician Assistant Medical
DX: R63.4 Abnormal weight loss (principal)
CPT/HCPCS: 76830; 76856

== ENCOUNTER 2019-06-29 13:41 | Outpatient (CLI) | payer MEDICARE, BC ==
--- NOTE | 2019-06-30 05:22 | Ultrasound Report ---
Reason: OVARIAN MASS Procedure Date: 06/29/2019 Accession Number: [id number] / [id number] Procedure: US - Pelvic w/Transvaginal CPT Code: FULL RESULT: EXAM: PELVIC ULTRASOUND EXAM DATE: 06/29/2019 01:57 PM. CLINICAL HISTORY: OVARIAN MASS. COMPARISON: PELVIC W/TRANSVAGINAL 03/01/2019 3:10 PM ABDOMEN/PELVIS W/ 01/14/2019 12:58 PM. TECHNIQUE: Realtime transabdominal pelvic scan performed to identify the uterus and adnexa and as an overview of other pelvic structures, followed by transvaginal scan to provide greater detail of the uterus and adnexa, with static image documentation. FINDINGS: Uterus: Suboptimally visualized. 7.1 x 2.6 x 5.4 cm, volume 51.8 cc. Anteverted position. Normal overall size and echotexture. Masses: None. Endometrium: 3 mm. Normal. Cervix: Unremarkable. Right Ovary: Oophorectomy Left Ovary: No ovaries seen. Hypoattenuating structure in the left adnexa measuring 5.4 x 7.4 x 1.9 cm, with hyperechoic rim and questionable bowel signature. Free Fluid: None. Other: None. IMPRESSION: 1. Right oophorectomy. Left ovary not visualized. 2. Hypoechoic structure in the left adnexa is indeterminate, could be bowel versus mass. There was no mass seen on CT 01/14/2019. CT or MRI may be a better option for this patient to exclude mass RADIA
== END 2019-06-29 13:42 | disposition home or self-care (01) ==
LOC: DI 13:41
PROVIDERS: ATTEND Obstetrics & Gynecology
DX: N83.9 Noninflammatory disorder of ovary, fallopian tube and broad ligament, unspecified (principal); Z90.721 Acquired absence of ovaries, unilateral
CPT/HCPCS: 76830; 76856

== ENCOUNTER 2019-07-13 12:38 | Outpatient (CLI) | payer MEDICARE, BC ==
[2019-07-13] MEDS ORDERED: GADOBUTROL 10 MMOL/10 ML VIAL ONE (13:01)
[2019-07-13] MEDS ORDERED: GADOBUTROL 10 MMOL/10 ML VIAL IVP ONE (13:47)
--- NOTE | 2019-07-14 16:14 | MRI Report ---
Reason: OVARIAN MASS, ABN PELVIC US Procedure Date: 07/13/2019 Accession Number: [id number] / [id number] Procedure: MRI - Pelvis W/WO CPT Code: Final Report FULL RESULT: EXAM: MR PELVIS WITH AND WITHOUT CONTRAST (MR FEMALE PELVIS). EXAM DATE: 07/13/2019 02:13 PM. CLINICAL HISTORY: Left ovarian mass. COMPARISON: PELVIC W/TRANSVAGINAL 06/29/2019 1:57 PM. PELVIC W/TRANSVAGINAL 03/01/2019 3:10 PM. TECHNIQUE: Multiplanar breath-hold T1, T2 and DWI sequences obtained through the pelvis on an MR scanner. Images obtained before and after administration of Gadavist 5 mL intravenous contrast. FINDINGS: Reproductive Organs: Uterus: The uterus is anteverted and measures 3.8 x 2.7 x 3.9 cm. The endometrial stripe measures 1-2 mm. There are no uterine masses. Right Ovary: Not visualized, likely atrophic. No adnexal abnormality is seen. Left Ovary: Not visualized, likely atrophic. A small 1.3 cm benign simple appearing cyst along the left pelvic sidewall is seen. There is no finding correlating with large mass-like process in the left adnexa measuring 5.4 x 7.4 x 1.9 cm on recent ultrasound suggesting bowel. Bowel: The visualized portions of the small bowel, colon, and rectum appear normal. Bladder: The urinary bladder appears normal. Other: None. IMPRESSION: 1. No large left adnexal mass correlating with findings seen on ultrasound, suspect representing bowel. A small simple benign-appearing 1.3 cm cyst along the left pelvic sidewall is seen. 2. Atrophic uterus consistent with postmenopausal change. Normal ovaries not visualized, likely atrophic. 3. Normal endometrium. RADIA
== END 2019-07-13 12:39 | disposition home or self-care (01) ==
LOC: DI 12:38
PROVIDERS: ATTEND Physician Assistant Medical
DX: N83.9 Noninflammatory disorder of ovary, fallopian tube and broad ligament, unspecified (principal); N85.8 Other specified noninflammatory disorders of uterus
CPT/HCPCS: 72197; A9585

== ENCOUNTER 2020-05-02 11:35 | Outpatient (CLI) | payer MEDICARE, BC | END 2020-05-02 23:59 | disposition critical access hospital (66) | LOC: EMS 11:35 | PROVIDERS: ATTEND Surgery | DX: R07.81 Pleurodynia (principal); M79.675 Pain in left toe(s); W19.XXXA Unspecified fall, initial encounter | CPT/HCPCS: A0425; A0429 ==

== ENCOUNTER 2020-05-02 17:10 | Outpatient (CLI) | payer MEDICARE, BC | END 2020-05-02 23:59 | disposition short-term general hospital (02) | LOC: EMS 17:10 | PROVIDERS: ATTEND Surgery | DX: S22.43XA Multiple fractures of ribs, bilateral, initial encounter for closed fracture (principal); J94.2 Hemothorax; W18.39XA Other fall on same level, initial encounter | CPT/HCPCS: A0425; A0427 ==

== ENCOUNTER 2020-06-06 08:00 | Outpatient (CLI) | payer MEDICARE, BC ==
[2020-06-06 11:54] LABS: BASOPHILS # (AUTO) 0.1 10^3/uL (0.0-0.1); BASOPHILS % (AUTO) 1.5 %; EOSINOPHILS # (AUTO) 0.2 10^3/uL (0.0-0.7); EOSINOPHILS % (AUTO) 4.9 %; HGB - HEMOGLOBIN 12.4 g/dL (12.0-16.0); LYMPHOCYTES # (AUTO) 0.9 10^3/uL (1.5-3.5); LYMPHOCYTES % (AUTO) 28.4 %; MEAN CORPUSCULAR HEMOGLOBIN 32.8 pg (27.0-31.0); MEAN CORPUSCULAR HGB CONC 33.2 g/dL (32.0-36.0); MEAN CORPUSCULAR VOLUME 98.7 fL (81.0-99.0); MONOCYTES # (AUTO) 0.5 10^3/uL (0.0-1.0); MONOCYTES % (AUTO) 14.8 %; NEUTROPHILS # (AUTO) 1.6 10^3/uL (1.5-6.6); NEUTROPHILS % (AUTO) 50.1 %; PLT - PLATELET COUNT 187 10^3/uL (130-450); RED BLOOD COUNT 3.78 10^6/uL (4.20-5.40); RED CELL DISTRIBUTION WIDTH 13.2 % (12.0-15.0); WHITE BLOOD COUNT 3.2 x10^3/uL (4.8-10.8)
[2020-06-06 12:30] LABS: ALBUMIN 3.5 g/dL (3.2-5.5); ALBUMIN/GLOBULIN RATIO 0.9 (1.0-2.2); ALKALINE PHOSPHATASE 92 IU/L (42-121); ALT ALANINE AMINOTRANSFERASE 14 IU/L (10-60); AST ASPARTATE AMINOTRANSFERASE 29 IU/L (10-42); BILIRUBIN,TOTAL 0.7 mg/dL (0.2-1.0); BUN - BLOOD UREA NITROGEN 14 mg/dL (6-20); CALCIUM 9.1 mg/dL (8.5-10.3); CARBON DIOXIDE - CO2 31 mmol/L (21-32); CHLORIDE 90 mmol/L (101-111); CHOL/HDL RATIO 3.3 (<4.4); CHOLESTEROL 199 mg/dL; CREATININE 0.8 mg/dL (0.4-1.0); GLUCOSE 86 mg/dL (70-100); HDL CHOLESTEROL 60 mg/dL; LDL CHOLESTEROL,CALCULATED 129 mg/dL; LDL/HDL RATIO 2.2 (<4.4); SODIUM 127 mmol/L (135-145); TOTAL PROTEIN 7.3 g/dL (6.7-8.2); VLDL CHOLESTEROL 10 mg/dL
== END 2020-06-06 23:59 | disposition home or self-care (01) ==
LOC: LAB.WCP 08:00
PROVIDERS: ATTEND Physician Assistant Medical
DX: E78.2 Mixed hyperlipidemia (principal); I10 Essential (primary) hypertension
CPT/HCPCS: 36415; 80053; 80061; 83721; 84443; 85025

== ENCOUNTER 2020-06-27 13:25 | Outpatient (CLI) | payer MEDICARE, BC | END 2020-06-27 13:26 | disposition home or self-care (01) | LOC: DI 13:25 | PROVIDERS: ATTEND Physician Assistant Medical | DX: I35.0 Nonrheumatic aortic (valve) stenosis (principal) | CPT/HCPCS: 93306 ==

== ENCOUNTER 2020-12-18 08:00 | Outpatient (CLI) | payer MEDICARE, BC ==
[2020-12-18 17:54] LABS: BASOPHILS % (AUTO) 0.7 %; EOSINOPHILS # (AUTO) 0.2 10^3/uL (0.0-0.7); EOSINOPHILS % (AUTO) 5.3 %; HCT - HEMATOCRIT 38.9 % (37.0-47.0); HGB - HEMOGLOBIN 12.9 g/dL (12.0-16.0); LYMPHOCYTES # (AUTO) 1.5 10^3/uL (1.5-3.5); LYMPHOCYTES % (AUTO) 36.4 %; MEAN CORPUSCULAR HGB CONC 33.2 g/dL (32.0-36.0); MEAN CORPUSCULAR VOLUME 96.5 fL (81.0-99.0); MEAN PLATELET VOLUME 9.5 fL (7.9-10.8); MONOCYTES # (AUTO) 0.6 10^3/uL (0.0-1.0); MONOCYTES % (AUTO) 14.3 %; NEUTROPHILS # (AUTO) 1.8 10^3/uL (1.5-6.6); NEUTROPHILS % (AUTO) 43.1 %; PLT - PLATELET COUNT 185 10^3/uL (130-450); RED BLOOD COUNT 4.03 10^6/uL (4.20-5.40); RED CELL DISTRIBUTION WIDTH 13.4 % (12.0-15.0); WHITE BLOOD COUNT 4.1 x10^3/uL (4.8-10.8)
[2020-12-18 18:26] LABS: ALBUMIN 3.7 g/dL (3.2-5.5); ALBUMIN/GLOBULIN RATIO 0.9 (1.0-2.2); ALKALINE PHOSPHATASE 89 IU/L (42-121); ALT ALANINE AMINOTRANSFERASE 20 IU/L (10-60); AST ASPARTATE AMINOTRANSFERASE 40 IU/L (10-42); BILIRUBIN,TOTAL 0.6 mg/dL (0.2-1.0); BUN - BLOOD UREA NITROGEN 20 mg/dL (6-20); CALCIUM 9.6 mg/dL (8.5-10.3); CARBON DIOXIDE - CO2 28 mmol/L (21-32); CHLORIDE 96 mmol/L (101-111); CHOL/HDL RATIO 3.2 (<4.4); CHOLESTEROL 199 mg/dL; CREATININE 0.9 mg/dL (0.4-1.0); GFR - MDRD 60 (>89); GLUCOSE 97 mg/dL (70-100); HDL CHOLESTEROL 62 mg/dL; LDL CHOLESTEROL,CALCULATED 128 mg/dL; LDL/HDL RATIO 2.1 (<4.4); POTASSIUM 4.1 mmol/L (3.5-5.0); SODIUM 133 mmol/L (135-145); TOTAL PROTEIN 7.6 g/dL (6.7-8.2); TRIGLYCERIDES 43 mg/dL; VLDL CHOLESTEROL 9 mg/dL
== END 2020-12-18 23:59 | disposition home or self-care (01) ==
LOC: LAB.WCP 08:00
PROVIDERS: ATTEND Physician Assistant Medical
DX: E78.2 Mixed hyperlipidemia (principal); K21.9 Gastro-esophageal reflux disease without esophagitis
CPT/HCPCS: 36415; 80053; 80061; 83721; 85025

== ENCOUNTER 2021-06-18 14:30 | Outpatient (CLI) | payer MEDICARE, BC ==
[2021-06-18 17:49] LABS: BASOPHILS # (AUTO) 0.1 10^3/uL (0.0-0.1); BASOPHILS % (AUTO) 1.1 %; EOSINOPHILS # (AUTO) 0.2 10^3/uL (0.0-0.7); EOSINOPHILS % (AUTO) 4.3 %; HCT - HEMATOCRIT 39.4 % (37.0-47.0); HGB - HEMOGLOBIN 12.7 g/dL (12.0-16.0); LYMPHOCYTES # (AUTO) 1.6 10^3/uL (1.5-3.5); LYMPHOCYTES % (AUTO) 34.8 %; MEAN CORPUSCULAR HEMOGLOBIN 32.2 pg (27.0-31.0); MEAN CORPUSCULAR HGB CONC 32.2 g/dL (32.0-36.0); MEAN PLATELET VOLUME 9.7 fL (7.9-10.8); MONOCYTES # (AUTO) 0.6 10^3/uL (0.0-1.0); MONOCYTES % (AUTO) 13.9 %; NEUTROPHILS % (AUTO) 45.5 %; PLT - PLATELET COUNT 179 10^3/uL (130-450); RED BLOOD COUNT 3.94 10^6/uL (4.20-5.40); RED CELL DISTRIBUTION WIDTH 13.2 % (12.0-15.0); WHITE BLOOD COUNT 4.5 x10^3/uL (4.8-10.8)
[2021-06-18 18:05] LABS: ALBUMIN 3.7 g/dL (3.2-5.5); ALKALINE PHOSPHATASE 93 IU/L (42-121); ALT ALANINE AMINOTRANSFERASE 20 IU/L (10-60); AST ASPARTATE AMINOTRANSFERASE 41 IU/L (10-42); BILIRUBIN,TOTAL 0.6 mg/dL (0.2-1.0); BUN - BLOOD UREA NITROGEN 21 mg/dL (6-20); CALCIUM 9.4 mg/dL (8.5-10.3); CARBON DIOXIDE - CO2 29 mmol/L (21-32); CHLORIDE 97 mmol/L (101-111); CHOL/HDL RATIO 3.4 (<4.4); CHOLESTEROL 190 mg/dL; CREATININE 1.1 mg/dL (0.4-1.0); GFR - MDRD 47 (>89); GLUCOSE 125 mg/dL (70-100); HDL CHOLESTEROL 56 mg/dL; LDL CHOLESTEROL,CALCULATED 124 mg/dL; LDL/HDL RATIO 2.2 (<4.4); POTASSIUM 4.2 mmol/L (3.5-5.0); SODIUM 133 mmol/L (135-145); TOTAL PROTEIN 7.5 g/dL (6.7-8.2); TRIGLYCERIDES 49 mg/dL; VLDL CHOLESTEROL 10 mg/dL
[2021-06-20 20:23] LABS: ESTIMATED AVERAGE GLUCOSE 105 mg/dL (70-100); HEMOGLOBIN A1c% 5.3 % (4.27-6.07)
== END 2021-06-18 23:59 | disposition home or self-care (01) ==
LOC: LAB.WCP 14:30
PROVIDERS: ATTEND Physician Assistant Medical
DX: I10 Essential (primary) hypertension (principal); E78.2 Mixed hyperlipidemia; R73.9 Hyperglycemia, unspecified
CPT/HCPCS: 36415; 80053; 80061; 83036; 83721; 85025

== ENCOUNTER 2022-07-18 14:00 | Outpatient (CLI) | payer MEDICARE, BC ==
[2022-07-18 18:06] LABS: ALBUMIN 3.7 g/dL (3.2-5.5); ALBUMIN/GLOBULIN RATIO 0.8 (1.0-2.2); ALKALINE PHOSPHATASE 157 IU/L (42-121); ALT ALANINE AMINOTRANSFERASE 19 IU/L (10-60); AST ASPARTATE AMINOTRANSFERASE 46 IU/L (10-42); BILIRUBIN,TOTAL 0.6 mg/dL (0.2-1.0); BUN - BLOOD UREA NITROGEN 23 mg/dL (6-20); CALCIUM 9.4 mg/dL (8.5-10.3); CARBON DIOXIDE - CO2 30 mmol/L (21-32); CHLORIDE 100 mmol/L (101-111); CHOL/HDL RATIO 2.8 (<4.4); CHOLESTEROL 191 mg/dL; CREATININE 1.1 mg/dL (0.4-1.0); GFR - MDRD 47 (>89); GLUCOSE 95 mg/dL (70-100); HDL CHOLESTEROL 68 mg/dL; LDL CHOLESTEROL,CALCULATED 108 mg/dL; LDL/HDL RATIO 1.6 (<4.4); POTASSIUM 4.8 mmol/L (3.5-5.0); SODIUM 137 mmol/L (135-145); TOTAL PROTEIN 8.3 g/dL (6.7-8.2); TRIGLYCERIDES 73 mg/dL; VLDL CHOLESTEROL 15 mg/dL
== END 2022-07-18 14:01 | disposition home or self-care (01) ==
LOC: LAB.N 14:00
PROVIDERS: ATTEND Physician Assistant Medical
DX: E78.2 Mixed hyperlipidemia (principal)
CPT/HCPCS: 36415; 80053; 80061; 83721

== ENCOUNTER 2022-08-21 14:47 | Outpatient (CLI) | payer MEDICARE, BC | END 2022-08-21 14:48 | disposition home or self-care (01) | LOC: DI 14:47 | PROVIDERS: ATTEND Physician Assistant Medical | DX: I35.0 Nonrheumatic aortic (valve) stenosis (principal); I51.7 Cardiomegaly; I77.810 Thoracic aortic ectasia | CPT/HCPCS: 93306 ==

== ENCOUNTER 2023-02-04 08:49 | Outpatient (CLI) | payer MEDICARE, BC ==
[2023-02-04 12:02] LABS: ALBUMIN 3.5 g/dL (3.2-5.5); ALBUMIN/GLOBULIN RATIO 0.9 (1.0-2.2); ALKALINE PHOSPHATASE 89 IU/L (42-121); ALT ALANINE AMINOTRANSFERASE 21 IU/L (10-60); AST ASPARTATE AMINOTRANSFERASE 42 IU/L (10-42); BILIRUBIN,TOTAL 0.5 mg/dL (0.2-1.0); BUN - BLOOD UREA NITROGEN 17 mg/dL (6-20); CALCIUM 9.2 mg/dL (8.5-10.3); CARBON DIOXIDE - CO2 29 mmol/L (21-32); CHLORIDE 99 mmol/L (101-111); CHOL/HDL RATIO 3.4 (<4.4); CHOLESTEROL 191 mg/dL; CREATININE 0.9 mg/dL (0.4-1.0); GFR - MDRD 59 (>89); GLUCOSE 102 mg/dL (70-100); HDL CHOLESTEROL 57 mg/dL; LDL CHOLESTEROL,CALCULATED 125 mg/dL; LDL/HDL RATIO 2.2 (<4.4); POTASSIUM 4.3 mmol/L (3.5-5.0); SODIUM 134 mmol/L (135-145); TOTAL PROTEIN 7.6 g/dL (6.7-8.2); TRIGLYCERIDES 45 mg/dL; VLDL CHOLESTEROL 9 mg/dL
[2023-02-04 12:05] LABS: BASOPHILS # (AUTO) 0.1 10^3/uL (0.0-0.1); BASOPHILS % (AUTO) 1.2 %; EOSINOPHILS # (AUTO) 0.3 10^3/uL (0.0-0.7); EOSINOPHILS % (AUTO) 6.1 %; HCT - HEMATOCRIT 39.9 % (37.0-47.0); HGB - HEMOGLOBIN 12.8 g/dL (12.0-16.0); LYMPHOCYTES # (AUTO) 1.5 10^3/uL (1.5-3.5); LYMPHOCYTES % (AUTO) 35.6 %; MEAN CORPUSCULAR HEMOGLOBIN 31.1 pg (27.0-31.0); MEAN CORPUSCULAR HGB CONC 32.1 g/dL (32.0-36.0); MEAN CORPUSCULAR VOLUME 96.8 fL (81.0-99.0); MEAN PLATELET VOLUME 10.2 fL (7.9-10.8); MONOCYTES # (AUTO) 0.5 10^3/uL (0.0-1.0); MONOCYTES % (AUTO) 13.1 %; NEUTROPHILS # (AUTO) 1.8 10^3/uL (1.5-6.6); PLT - PLATELET COUNT 152 10^3/uL (130-450); RED BLOOD COUNT 4.12 10^6/uL (4.20-5.40); RED CELL DISTRIBUTION WIDTH 15.4 % (12.0-15.0); WHITE BLOOD COUNT 4.1 x10^3/uL (4.8-10.8)
== END 2023-02-04 08:50 | disposition home or self-care (01) ==
LOC: LAB.N 08:49
PROVIDERS: ATTEND Physician Assistant Medical
DX: E78.2 Mixed hyperlipidemia (principal); D50.9 Iron deficiency anemia, unspecified
CPT/HCPCS: 36415; 80053; 80061; 83721; 85025

== ENCOUNTER 2023-07-20 03:04 | Outpatient (CLI) | payer MEDICARE, BC | END 2023-07-20 03:05 | disposition critical access hospital (66) | LOC: EMS 03:04 | DX: R51.9 Headache, unspecified (principal); W18.39XA Other fall on same level, initial encounter; Y92.091 Bathroom in other non-institutional residence as the place of occurrence of the external cause | CPT/HCPCS: A0425; A0429 ==

== ENCOUNTER 2023-07-20 03:23 | Emergency (ER) | payer MEDICARE, BC ==
--- NOTE | 2023-07-20 03:52 | ED Physician Documentation ---
History of Present Illness - Stated complaint Stated Complaint: FALL/L EYE INJ - Chief complaint Chief Complaint: Laceration - History obtained from History obtained from: Patient - Additonal information Additional information: The patient comes to the ED with chief complaint of facial injury after ground- level fall at home. She had gotten up to use the bathroom and after getting up from the toilet, the patient lost her balance and fell sideways into her wall shower cubicle, striking her left periorbital area. The patient states she did not lose consciousness and was not hurt in any other way. She is noticed quite a bit of swelling around the eye and decided to call 911 so she can come get checked out. Patient denies any rib or hip pain. No pain in any of the other extremities. The patient denies any other complaints at this time. She is not anticoagulated. PD PAST MEDICAL HISTORY - Past Medical History Past Medical History: Yes Cardiovascular: Hypertension, Murmur Respiratory: None Neuro: None Endocrine/Autoimmune: None GI: None : Incontinence HEENT: Chronic hearing loss Psych: Anxiety Musculoskeletal: Osteoporosis, Chronic back pain Derm: None - Past Surgical History Past Surgical History: Yes General: Appendectomy Ortho: Carpal Tunnel surgery /[employer]: Oophrectomy HEENT: Cataracts - Present Medications Home Medications: Ambulatory Orders Medication Instructions Recorded Confirmed Aspirin [Adult Aspirin Regimen] 81 mg PO DAILY 05/02/20 07/20/23 Losartan Potassium 50 mg PO DAILY 05/02/20 07/20/23 Metoprolol Tartrate 12.5 mg PO BID 05/02/20 07/20/23 Mirtazapine 15 mg PO DAILY PM 05/02/20 07/20/23 Omeprazole 20 mg PO DAILY 05/02/20 07/20/23 Sertraline HCl 25 mg PO DAILY 05/02/20 07/20/23 Tramadol HCl 50 mg PO BID 05/02/20 07/20/23 hydroCHLOROthiazide 25 mg PO DAILY 05/02/20 07/20/23 [Hydrochlorothiazide] - Allergies Allergies/Adverse Reactions: Allergies Allergy/AdvReac Type Severity Reaction Status Date / Time celecoxib [From Celebrex] Allergy Intermediate Itching Verified 07/20/23 03:47 Penicillins Allergy Rash Verified 07/20/23 03:47 rofecoxib [From Vioxx] Allergy unkown Verified 07/20/23 03:47 Sulfa (Sulfonamide Allergy Rash Verified 07/20/23 03:47 Antibiotics) - Social History Does the pt smoke?: No Smoking Status: Never smoker Does the pt drink ETOH?: No Does the pt have substance abuse?: No - Immunizations Immunizations are current?: Yes - POLST Patient has POLST: Yes POLST Status: DNR PD ED PE NORMAL - Vitals Vital signs reviewed: Yes - General General: Alert and oriented X 3, No acute distress - HEENT HEENT: PERRL, EOMI, Moist mucous membranes, Other (Large contusion involving the superior orbital rim on the left. No deformity of the nose or other facial bones. No skin breakage. Left ocular exam reveals no evidence of trauma.) - Neck Neck: Supple, no meningeal sign, No bony TTP - Cardiac Cardiac: RRR, No murmur - Respiratory Respiratory: No respiratory distress, Clear bilaterally - Abdomen Abdomen: Soft, Non tender, Non distended - Back Back: No spinal TTP - Derm Derm: Warm and dry - Extremities Extremities: No deformity - Neuro Neuro: Alert and oriented X 3 - Psych Psych: Normal mood, Normal affect Results - Vitals Vitals: Vital Signs - 24 hr 07/20/23 03:23 Temperature 35.9 C L Heart Rate 79 Respiratory 16 Rate Blood Pressure 140/100 H O2 Saturation 97 Oxygen O2 Source Room air - Rads (name of study) CT head Relevant Findings:: Final report received, See rad report (Negative) CT face Relevant Findings:: Final report received, See rad report (Left periorbital soft tissue swelling, otherwise negative) CT C-spine Relevant Findings:: Final report received, See rad report (Negative) PD Medical Decision Making - ED course Complexity details: reviewed results, re-evaluated patient, considered differential, d/w patient ED course: The patient was worked up with CT scans of the head, face, and neck, all of which were unremarkable. She was stable for discharge home. We have discussed symptomatic management at home, as well as the usual indications for return. Departure - Departure Disposition: 01 Home, Self Care Clinical Impression: Ground-level fall Periorbital contusion of left eye Qualifiers: Encounter type: initial encounter Qualified Code(s): S05.12XA - Contusion of eyeball and orbital tissues, left eye, initial encounter Closed head injury Qualifiers: Encounter type: initial encounter Qualified Code(s): S09.90XA - Unspecified injury of head, initial encounter Condition: Stable Instructions: ED Contusion Face, ED Head Injury Closed Comments: The CT scans of your head, neck, and face all look good. There is no bleeding in your brain. No broken bones. The swelling and bruising will go away on its own over the next few weeks, but some of the bruising may track down your face as gravity pulls it down. This is normal and does not represent extension of the injury. Please follow-up with your primary doctor for further concerns. You may place an ice pack over the swollen area to help with discomfort and swelling. Forms: PCP List
[2023-07-20 04:01] VITALS: O2SAT 97
[2023-07-20 06:45] VITALS: BP 150/81
--- NOTE | 2023-07-20 07:47 | CT Report ---
PROCEDURE: CERVICAL SPINE WO INDICATIONS: fall/head trauma TECHNIQUE: Noncontrast 3 mm thick sections acquired from the skull base to the T4 level. Sagittal and coronal r eformats were then constructed. For radiation dose reduction, the following was used: automated exp osure control, adjustment of mA and/or kV according to patient size. COMPARISON: 05/02/2020. FINDINGS: Image quality: Excellent. Bones: No fractures or dislocations. Visualized superior ribs are intact. Severe diffuse cervical s pondylitic change. Prominent multilevel facet arthropathy. Multilevel disc height loss and uncoverteb ral joint hypertrophy resulting in multilevel bony foraminal narrowing. Prominent pannus at C1-C2 wit hout canal stenosis. Soft tissues: Prevertebral soft tissues are normal in thickness. No paravertebral hematomas. No ap ical pneumothoraces. IMPRESSION: 1. No acute cervical fracture or dislocation. 2. Severe cervical spondylitic change. Findings are concordant with preliminary interpretation provided by [facility]. Reviewed by: Jackson Watson MD on 07/20/2023 7:45 AM PST Approved by: Jackson Watson MD on 07/20/2023 7:45 AM PST Station ID: [id number]
--- NOTE | 2023-07-20 07:49 | CT Report ---
PROCEDURE: HEAD WO INDICATIONS: fall/head injury TECHNIQUE: Noncontrast 4.5 mm thick angled axial sections acquired from the foramen magnum to the vertex. For r adiation dose reduction, the following was used: automated exposure control, adjustment of mA and/or kV according to patient size. COMPARISON: None. FINDINGS: Image quality: Excellent. CSF spaces: Basal cisterns are patent. No extra-axial fluid collections. Ventricles are normal in size and shape. Brain: No midline shift. No intracranial masses or hemorrhage. Abdalla-white matter interface is norm al. Age-related line loss and moderate to severe small vessel ischemic change. Skull and face: Prominent left forehead hematoma. Calvarium and visualized facial bones are intact, without suspicious lesions. Sinuses: Visualized sinuses and mastoids are clear. IMPRESSION: 1. No acute intracranial pathology. 2. Age-related volume loss and moderate to severe small vessel ischemic change. 3. Prominent left forehead hematoma. Findings are concordant with preliminary interpretation provided by [facility]. Reviewed by: Jackson Watson MD on 07/20/2023 7:48 AM PST Approved by: Jackson Watson MD on 07/20/2023 7:48 AM PST Station ID: [id number]
--- NOTE | 2023-07-20 08:01 | CT Report ---
PROCEDURE: MAXILLOFACIAL WO INDICATIONS: fall/facial injury TECHNIQUE: Noncontrast 1.5 mm thick axial images acquired from the mandible through the frontal sinuses, with co octavio and sagittal reformatting. For radiation dose reduction, the following was used: automated ex posure control, adjustment of mA and/or kV according to patient size. COMPARISON: None. FINDINGS: Image quality: Excellent. Bones and teeth: Orbital concepcion are intact. Sinus concepcion show no fracture or deformity. Nasal bones and septum are intact. Visualized portions of the mandible demonstrate no fractures or subluxation. Zygomatic arches are intact. Pterygoid plates are intact. Visualized portions of the skull base an d auditory canals are intact. Incidental note is made of severe bilateral TMJ degenerative change. T here are no upper teeth noted. Sinuses: Paranasal sinuses are aerated, without fluid levels, mucosal thickening, or mucoceles. Mas toid air cells are aerated. Soft tissues: Left periorbital hematoma/left forehead hematoma. No mass or fluid collection. No enla rged lymph nodes. No soft tissue lacerations or debris. Vascular: Visualized vascular structures appear normal in the absence of contrast. Bony vascular fo ramina and canals are intact. IMPRESSION: 1. Left periorbital hematoma/left forehead hematoma 2. No displaced facial bone fracture or mandibular fracture. 3. Severe bilateral TMJ degenerative change. Findings are concordant with preliminary interpretation provided by [facility]. Reviewed by: Jackson Watson MD on 07/20/2023 8:00 AM [facility] Approved by: Jackson Watson MD on 07/20/2023 8:00 AM PST Station ID: [id number]
== END 2023-07-20 06:56 | disposition home or self-care (01) ==
LOC: ED 03:23
DX: S05.12XA Contusion of eyeball and orbital tissues, left eye, initial encounter (principal); S09.90XA Unspecified injury of head, initial encounter; W18.30XA Fall on same level, unspecified, initial encounter; Y92.009 Unspecified place in unspecified non-institutional (private) residence as the place of occurrence of the external cause; I10 Essential (primary) hypertension
CPT/HCPCS: 99283; 99284

== ENCOUNTER 2023-08-24 14:59 | Outpatient (CLI) | payer MEDICARE, BC ==
--- NOTE | 2023-08-24 17:01 | Ultrasound Report ---
PROCEDURE: Carotid Doppler Complete INDICATIONS: CAROTID STENOSIS TECHNIQUE: Color and pulse Doppler interrogation was performed of both carotid systems, with image documentation and velocity measurements. COMPARISON: Carotid Doppler on May 08, 2016. FINDINGS: Right side: Brachial blood pressure: 129 mm Hg. Common carotid artery peak systolic velocity: 63 cm/sec. Internal carotid artery peak systolic velocity: 87 cm/sec. Internal carotid artery end diastolic velocity: 24 cm/sec. External carotid artery peak systolic velocity: 56 cm/sec. ICA/CCA peak systolic ratio: 1.38 (previously 1.46) . Abdalla scale imaging description: Mild atherosclerotic plaque. Percent internal carotid artery stenosis: Less than 50 percent stenosis. Vertebral artery: Flow direction is antegrade. Left side: Brachial blood pressure: 143 mm Hg. Common carotid artery peak systolic velocity: 49 cm/sec. Internal carotid artery peak systolic velocity: 116 cm/sec. Internal carotid artery end diastolic velocity: 20 cm/sec. External carotid artery peak systolic velocity: 283 cm/sec., Previously 323 ICA/CCA peak systolic ratio: 2.37 (previously 2.07). Abdalla scale imaging description: Moderate atherosclerotic plaque. Percent internal carotid artery stenosis: 50-69 percent stenosis. Vertebral artery: Flow direction is antegrade. IMPRESSION: 1. In the right internal carotid artery, there is less than 50% stenosis based on peak systolic veloc ity criteria, previously less than 50% stenosis. 2. In the left internal carotid artery, there is 50-69% stenosis based on peak systolic velocity crit eria, previously 50-69% stenosis. 3. Antegrade blood flow within the right vertebral artery. 4. Antegrade blood flow within the left vertebral artery. The estimate of stenosis included in the report of the imaging study was calculated using the [facility]-end orsed standards of carotid artery stenosis. Reviewed by: Ftio Montes MD on 08/24/2023 4:59 PM PST Approved by: Fito Montes MD on 08/24/2023 4:59 PM PST Station ID: [id number]
== END 2023-08-24 15:00 | disposition home or self-care (01) ==
LOC: DI 14:59
PROVIDERS: ATTEND Physician Assistant Medical
DX: I65.23 Occlusion and stenosis of bilateral carotid arteries (principal)
CPT/HCPCS: 93880

== ENCOUNTER 2023-10-18 18:36 | Outpatient (CLI) | payer MEDICARE, BC | END 2023-10-18 18:37 | disposition critical access hospital (66) | LOC: EMS 18:36 | DX: M25.511 Pain in right shoulder (principal); M25.551 Pain in right hip; W18.39XA Other fall on same level, initial encounter; Y92.098 Other place in other non-institutional residence as the place of occurrence of the external cause | CPT/HCPCS: A0425; A0429 ==

== ENCOUNTER 2023-10-18 18:54 | Emergency (ER) | payer MEDICARE, BC ==
--- NOTE | 2023-10-18 18:58 | ED Physician Documentation ---
PD HPI LOWER EXT INJURY - Stated complaint Stated Complaint: FALL - History obtained from History obtained from: Patient, EMS - History of Present Illness PD HPI LOW EXT INJURY LOCATION: Right - Additional information Additional information: 87-year-old woman presents from assisted living. She had mechanical fall tonight, she was showing off her new sweatshirt to a friend and lost her balance and fell down on her right side injuring the shoulder more than the hip. She has been able to walk and bear weight. No other injuries. No head strike. Declines anything for pain medication on initial evaluation. PD PAST MEDICAL HISTORY - Past Medical History Cardiovascular: Hypertension, Murmur Respiratory: None Neuro: None Endocrine/Autoimmune: None GI: None : Incontinence HEENT: Chronic hearing loss Psych: Anxiety Musculoskeletal: Chronic back pain, Osteoporosis Derm: None - Past Surgical History Past Surgical History: Yes General: Appendectomy Ortho: Carpal Tunnel surgery /CLOTH SANDER: Oophrectomy HEENT: Cataracts - Present Medications Home Medications: Ambulatory Orders Medication Instructions Recorded Confirmed Aspirin [Adult Aspirin Regimen] 81 mg PO DAILY 05/02/20 10/18/23 Losartan Potassium 50 mg PO DAILY 05/02/20 10/18/23 Metoprolol Tartrate 12.5 mg PO BID 05/02/20 10/18/23 Mirtazapine 15 mg PO DAILY PM 05/02/20 10/18/23 Omeprazole 20 mg PO DAILY 05/02/20 10/18/23 Sertraline HCl 25 mg PO DAILY 05/02/20 10/18/23 Tramadol HCl 50 mg PO BID 05/02/20 10/18/23 hydroCHLOROthiazide 25 mg PO DAILY 05/02/20 10/18/23 [Hydrochlorothiazide] - Allergies Allergies/Adverse Reactions: Allergies Allergy/AdvReac Type Severity Reaction Status Date / Time celecoxib [From Celebrex] Allergy Intermediate Itching Verified 10/18/23 19:03 Penicillins Allergy Rash Verified 10/18/23 19:03 rofecoxib [From Vioxx] Allergy unkown Verified 10/18/23 19:03 Sulfa (Sulfonamide Allergy Rash Verified 10/18/23 19:03 Antibiotics) - Social History Does the pt smoke?: No Smoking Status: Former smoker Does the pt drink ETOH?: No Does the pt have substance abuse?: No - Immunizations Immunizations are current?: Yes - POLST Patient has POLST: Yes POLST Status: DNR PD ED PE NORMAL - Vitals Vital signs reviewed: Yes - General General: Alert and oriented X 3, No acute distress - HEENT HEENT: PERRL, EOMI - Neck Neck: Supple, no meningeal sign, No bony TTP - Derm Derm: Normal color, Warm and dry - Extremities Extremities: Other (She is tender over the right glenohumeral joint without deformity. She can only abduct to about 45 degrees without pain. The right hip is nontender and she can lift it fully off the bed. She has mild pain with internal and external rotation.) - Neuro Neuro: Alert and oriented X 3, Normal speech Eye Opening: Spontaneous Motor: Obeys Commands Verbal: Oriented GCS Score: 15 Results - Vitals Vitals: Vital Signs - 24 hr 10/18/23 19:00 Temperature 37 C Heart Rate 68 Respiratory 18 Rate Blood Pressure 133/104 H O2 Saturation 96 Oxygen O2 Source Room air - Rads (name of study) Right shoulder x-ray demonstrates osteoarthritis and rotator cuff tendinopathy and calcific tendinitis Relevant Findings:: Final report received, EMP independent interpretation of test R Hip XR- NAD Relevant Findings:: Final report received, EMP independent interpretation of test PD Medical Decision Making - ED course ED course: She fell and injured her right hip and shoulder. Shoulder is hurting her a lot more but she declined pain medication. Clinically she does not have a broken hip, good range of motion and painless range of motion. She was road tested with a walker which is her baseline and she was doing okay. Departure - Departure Disposition: 01 Home, Self Care Clinical Impression: Ground-level fall Shoulder injury Qualifiers: Encounter type: initial encounter Laterality: right Qualified Code(s): S49.91XA - Unspecified injury of right shoulder and upper arm, initial encounter Contusion, hip Qualifiers: Encounter type: initial encounter Laterality: right Qualified Code(s): S70.01XA - Contusion of right hip, initial encounter Condition: Good Record reviewed to determine appropriate education?: Yes Instructions: ED Contusion Shoulder, ED Contusion Hip Comments: Follow-up with your doctor in a week for recheck, consider repeat imaging if still symptomatic at that time. Return for new or worsening symptoms.
[2023-10-18 19:03] VITALS: O2SAT 96
--- NOTE | 2023-10-18 19:53 | XRAY Report ---
PROCEDURE: Shoulder 2+V RT INDICATIONS: shoulder inj TECHNIQUE: 3 views of the shoulder were acquired. COMPARISON: None. FINDINGS: Bones: No fractures or dislocations. No suspicious bony lesions. Moderate osteoarthritic changes i n acromioclavicular and glenohumeral joint. Superior migration of the humeral head likely secondary t o chronic rotator cuff tendon tear. Visualized ribs appear intact. Soft tissues: Suspect rotator cuff calcific tendinitis. The visualized lungs are within normal limi ts. IMPRESSION: 1. No acute bony abnormality. 2. Moderate osteoarthritis. 3. Rotator cuff tendinopathy/calcific tendinitis. Reviewed by: Monica Andujar MD on 10/18/2023 7:51 PM PST Approved by: Monica Andujar MD on 10/18/2023 7:51 PM PST Station ID: [id number]
--- NOTE | 2023-10-18 19:57 | XRAY Report ---
PROCEDURE: Hip w/Pelvis 2-3V RT INDICATIONS: hip inj TECHNIQUE: 2 views of the hip were acquired. COMPARISON: None. FINDINGS: Bones: No fractures or dislocations. No suspicious bony lesions. Moderate osteoarthritic changes in hips and sacroiliac joints bilaterally. Spondylitic changes in lumbar spine. Soft tissues: No suspicious soft tissue calcifications or masses. IMPRESSION: Spondylitic changes No acute bony abnormality. Reviewed by: Monica Andujar MD on 10/18/2023 7:55 PM PST Approved by: Monica Andujar MD on 10/18/2023 7:55 PM PST Station ID: [id number]
[2023-10-18 21:06] VITALS: BP 155/72
== END 2023-10-18 20:52 | disposition home or self-care (01) ==
LOC: EDUNIT# → ED 18:54
DX: S49.91XA Unspecified injury of right shoulder and upper arm, initial encounter (principal); S70.01XA Contusion of right hip, initial encounter; W19.XXXA Unspecified fall, initial encounter; I10 Essential (primary) hypertension; Z87.891 Personal history of nicotine dependence
CPT/HCPCS: 99283; 99284

== ENCOUNTER 2024-01-08 08:27 | Outpatient (CLI) | payer MEDICARE, BC ==
[2024-01-08 12:28] LABS: BASOPHILS % (AUTO) 0.7 %; EOSINOPHILS # (AUTO) 0.3 10^3/uL (0.0-0.7); EOSINOPHILS % (AUTO) 6.8 %; HCT - HEMATOCRIT 43.3 % (37.0-47.0); HGB - HEMOGLOBIN 13.7 g/dL (12.0-16.0); LYMPHOCYTES # (AUTO) 1.6 10^3/uL (1.5-3.5); LYMPHOCYTES % (AUTO) 35.9 %; MEAN CORPUSCULAR HEMOGLOBIN 32.8 pg (27.0-31.0); MEAN CORPUSCULAR HGB CONC 31.6 g/dL (32.0-36.0); MEAN CORPUSCULAR VOLUME 103.6 fL (81.0-99.0); MEAN PLATELET VOLUME 10.1 fL (7.9-10.8); MONOCYTES # (AUTO) 0.6 10^3/uL (0.0-1.0); MONOCYTES % (AUTO) 13.8 %; NEUTROPHILS # (AUTO) 1.9 10^3/uL (1.5-6.6); NEUTROPHILS % (AUTO) 42.6 %; PLT - PLATELET COUNT 163 10^3/uL (130-450); RED BLOOD COUNT 4.18 10^6/uL (4.20-5.40); RED CELL DISTRIBUTION WIDTH 14.4 % (12.0-15.0); WHITE BLOOD COUNT 4.4 x10^3/uL (4.8-10.8)
[2024-01-08 13:04] LABS: ALBUMIN 3.9 g/dL (3.2-5.5); ALKALINE PHOSPHATASE 165 IU/L (42-121); ALT ALANINE AMINOTRANSFERASE 21 IU/L (10-60); AST ASPARTATE AMINOTRANSFERASE 43 IU/L (10-42); BILIRUBIN,TOTAL 0.6 mg/dL (0.2-1.0); BUN - BLOOD UREA NITROGEN 21 mg/dL (6-20); CALCIUM 10.5 mg/dL (8.5-10.3); CARBON DIOXIDE - CO2 30 mmol/L (21-32); CHLORIDE 101 mmol/L (101-111); CHOL/HDL RATIO 3.7 (<4.4); CHOLESTEROL 190 mg/dL; GFR - MDRD 52 (>89); GLUCOSE 93 mg/dL (74-104); HDL CHOLESTEROL 52 mg/dL; LDL CHOLESTEROL,CALCULATED 123 mg/dL; LDL/HDL RATIO 2.4 (<4.4); POTASSIUM 3.9 mmol/L (3.5-4.5); SODIUM 139 mmol/L (135-145); TOTAL PROTEIN 7.7 g/dL (6.4-8.9); TRIGLYCERIDES 76 mg/dL (48-352); VLDL CHOLESTEROL 15 mg/dL
[2024-01-08 13:10] LABS: FERRITIN 36.1 ng/mL (11.0-306.8)
== END 2024-01-08 08:28 | disposition home or self-care (01) ==
LOC: LAB.N 08:27
PROVIDERS: ATTEND Physician Assistant Medical
DX: E78.2 Mixed hyperlipidemia (principal); D50.9 Iron deficiency anemia, unspecified
CPT/HCPCS: 36415; 80053; 80061; 82728; 83721; 85025

== ENCOUNTER 2025-05-14 15:44 | Observation (INO) ==
--- OUTSIDE RECORDS SUMMARY | 2025-05-14 15:55 | EXTERNAL MEDICAL SUMMARY RPT | Continuity of Care Document ---
Author Organization [facility] Address [address] [address] Phone Problems date description facility 2025-04-13 09:42 Essential (primary) hypertensio n [facility] 2025-04-13 09:42 Unspecified atrial fibrillation [facility] 2025-04-13 09:42 Actinic keratosis [facility] 2025-04-13 09:42 Sacrococcygeal disorders, not e lsewhere classified [facility] 2025-04-13 09:49 Sacrococcygeal disorders, not e lsewhere classified [facility] 2025-04-13 11:04 Essential (primary) hypertensio n [facility] 2025-04-13 11:04 Unspecified atrial fibrillation [facility] 2025-04-13 11:04 Actinic keratosis [facility] 2025-04-13 11:04 Sacrococcygeal disorders, not e lsewhere classified [facility] 2025-04-13 11:04 Unspecified injury o f right shoulder and upper arm, initial encounter [facility] 2025-04-13 11:04 Unspecified injury of right hip , initial encounter [facility] 2025-04-14 00:03 Sacrococcygeal disorders, not e lsewhere classified [facility] Social History date description facility
--- NOTE | 2025-05-14 16:14 | ED Physician Documentation ---
PD HPI DYSPNEA Stated complaint Stated Complaint: WEAKNESS Chief complaint Chief Complaint: Resp Additional information Additional information: 89-year-old with atrial fibrillation not on anticoagulation, GERD, and chronic pain presents with dyspnea. She reportedly has developed progressive dyspnea over the last day and a half. She has been having a dry cough. No chest pain. She is not short of breath at while resting but is on exertion. No abdominal pain, vomiting, dysuria, or diarrhea. She has not noticed swelling of her legs. She lives in [facility]. She is unsure if she has a prior diagnosis of CHF. When asked why she is not on anticoagulation for her afib, she is unsure. Echo from 07/2024 showed EF 50-55% with indeterminate diastolic function. She was noted to have moderate aortic stenosis, moderate mitral regurgitation, and moderate tricuspid regurgitation. Meds/Allgy Home Medications Ambulatory Orders Medication Instructions Recorded Confirmed metoprolol tartrate 50 mg tablet 50 mg PO BID #180 tab s 10/10/24 04/13/25 mirtazapine 15 mg tablet 15 mg PO DAILY PM #90 tabs 0 10/13/24 04/13/25 Held on 01/11/25. Instructions: Therapy Completed losartan 100 mg tablet See Rx Instructions .Route 0 12/09/24 04/13/25 .COMPLEX #45 tabs omeprazole 20 mg capsule,delayed See Rx Instructions . Route 12/09/24 04/13/25 release .COMPLEX #180 caps sertraline 25 mg tablet See Rx Instructions .Route 0 12/09/24 04/13/25 .COMPLEX #90 tabs tramadol 50 mg tablet 50 mg PO BID PRN pain #180 t abs 01/31/25 04/13/25 Allergies Allergies Allergy/AdvReac Type Severity Reaction Status Date / Time celecoxib (From Celebrex) Allergy Intermediate Itching Verified 05/14/25 15:54 Penicillins Allergy Rash Verified 05/14/25 15:54 rofecoxib (From Vioxx) Allergy unkown Verified 05/14/25 15:54 Sulfa (Sulfonamide Allergy Rash Verified 05/14/25 15:54 Antibiotics) gabapentin AdvReac Intermediate Diarrhea Verified 05/14/25 15:54 PFS Active Problems All Active Problems (Updated 05/14/25 @ 22:21 by Walter Gunn MD) Atrial fibrillation with rapid ventricular response (Acute) Acute exacerbation of CHF (congestive heart failure) (Acute) Sacral back pain (Acute) Atrial fibrillation (Acute) Anxiety and depression (Acute) GERD (gastroesophageal reflux disease) (Acute) Hypertension, essential, benign (Acute) Tremor, essential (Acute 01/23/09) Renal artery stenosis (Acute 12/25/09) Osteoporosis (Acute 01/23/09) Irritable bowel syndrome (Acute 08/27/11) Urge incontinence (Acute 08/27/11) Hyperlipidemia, mixed (Acute 10/25/12) Carotid stenosis (Acute 01/22/10) Aortic stenosis (Acute 06/14/20) Anemia, iron deficiency (Acute 10/24/11) Allergic rhinitis (Acute 12/26/08) Actinic keratosis (Acute 05/30/13) Medical History Medical History (Updated 05/14/25 @ 22:21 by Walter Gunn MD) Chronic low back pain (10/03/08) Knee pain, bilateral (01/12/24) Cerumen impaction (02/26/23) Surgical History Surgical History (Updated 07/11/24 @ 08:18 by Latonia Teixeira PA-C) History of appendectomy (09/14/83) Social History Social History If you are a former smoker, when did you quit? (Date/Year): 1985 Do you dip or chew tobacco?: No Do you vape?: No Living arrangement: Assisted living Living Condition: Alone Do you feel safe in your home environment?: Yes History of physical, verbal, emotional, or financial abuse?: No Are you sexually active?: No POLST Patient has POLST: Yes Exam Exam Vital Signs: Vital Signs x48h Pulse Resp BP Pulse Ox O2 Flow Rate 05/15/25 06:00 74 20 117/75 97 3 05/15/25 05:45 85 17 117/75 98 3 05/15/25 03:00 79 20 111/73 95 3 05/15/25 02:00 83 18 111/62 94 3 05/15/25 01:00 78 18 121/78 94 3 05/15/25 00:44 87 20 121/78 93 3 Resting comfortably in no acute distress. She is not febrile. She is tachycardic and irregular rhythm. She is not tachypneic but oxygen saturation is 85% on room air. Patient requiring 3 units of oxygen to maintain saturations above 90%. Crackles in the bilateral lung bases. There is no abdominal tenderness. There is no swelling of the bilateral lower extremities. Extremities are warm and well-perfused. Patient is moving her extremities without focal neurologic deficit. Results Vitals Vitals: Vital Signs - 24 hr 05/14/25 15:47 05/14/25 15:58 05/14/25 16:00 Temperature 37.2 C Temperature Source Temporal Artery Scan Pulse Rate 118 H Respiratory Rate 16 Blood Pressure 147/103 H O2 Saturation 92 Oxygen Delivery Method O2 Source Room air If not protocol: Oxygen Flow, liters/minute Pain Intensity 0 0 0 05/14/25 16:11 05/14/25 16:11 05/14/25 18:00 Temperature Temperature Source Pulse Rate 116 H Respiratory Rate 21 Blood Pressure 136/89 H O2 Saturation 85 L 93 95 Oxygen Delivery Method O2 Source Room air Nasal cannula Nasal cannula If not protocol: Oxygen Flow, liters/minute 2 4 Pain Intensity 0 05/14/25 19:00 05/14/25 19:49 05/14/25 20:34 Temperature Temperature Source Pulse Rate 122 H 111 H 126 H Respiratory Rate 22 18 20 Blood Pressure 117/99 H 115/72 103/61 O2 Saturation 96 93 96 Oxygen Delivery Method O2 Source Nasal cannula Nasal cannula Nasal cannula If not protocol: Oxygen Flow, liters/minute 4 4 3 Pain Intensity 05/14/25 20:50 05/14/25 21:20 05/14/25 22:00 Temperature Temperature Source Pulse Rate 120 H 116 H 106 H Respiratory Rate 18 20 20 Blood Pressure 83/64 L 107/78 145/91 H O2 Saturation 94 94 93 Oxygen Delivery Method O2 Source Nasal cannula Nasal cannula Nasal cannula If not protocol: Oxygen Flow, liters/minute 3 3 Pain Intensity 05/14/25 22:37 05/15/25 00:44 05/15/25 01:00 Temperature Temperature Source Pulse Rate 86 87 78 Respiratory Rate 20 18 Blood Pressure 87/53 L 121/78 121/78 O2 Saturation 92 93 94 Oxygen Delivery Method O2 Source Nasal cannula Nasal cannula Nasal cannula If not protocol: Oxygen Flow, liters/minute 3 3 3 Pain Intensity 0 05/15/25 02:00 05/15/25 03:00 05/15/25 04:00 Temperature Temperature Source Pulse Rate 83 79 Respiratory Rate 18 20 Blood Pressure 111/62 111/73 O2 Saturation 94 95 Oxygen Delivery Method Nasal Cannula O2 Source Nasal cannula Nasal cannula If not protocol: Oxygen Flow, liters/minute 3 3 Pain Intensity 05/15/25 05:45 05/15/25 06:00 Temperature Temperature Source Pulse Rate 85 74 Respiratory Rate 17 20 Blood Pressure 117/75 117/75 O2 Saturation 98 97 Oxygen Delivery Method O2 Source Nasal cannula Nasal cannula If not protocol: Oxygen Flow, liters/minute 3 3 Pain Intensity 0 Oxygen O2 Source Nasal cannula EKG (time done) 16:52: EKG releavant findings:: EKG personally interpreted by author of this note. Relevant findings are: Rate: Rate (enter#) (16:52) Rhythm: Atrial fibrillation [place]: Normal QRS: QRS normal Ischemia: Normal ST segments Labs Labs: Laboratory Tests 05/14/25 16:41 WBC 6.9 RBC 4.54 Hgb 15.1 Hct 47.0 MCV 103.5 H MCH 33.3 H MCHC 32.1 RDW 16.7 H Plt Count 142 MPV 9.6 Neut # (Auto) 4.2 Lymph # (Auto) 1.7 [place] # (Auto) 0.8 Eos # (Auto) 0.0 Baso # (Auto) 0.0 Absolute Nucleated RBC 0.00 Nucleated RBC % 0.0 Sodium 137 Potassium 4.3 Chloride 103 Carbon Dioxide 26 Anion Gap 8.0 BUN 16 Creatinine 0.9 Estimated GFR (MDRD) 59 L Glucose 92 Calcium 9.0 Total Bilirubin 0.8 AST 32 ALT 13 Alkaline Phosphatase 167 H B-Natriuretic Peptide 432 H Total Protein 6.9 Albumin 3.5 Globulin 3.4 Albumin/Globulin Ratio 1.0 Procalcitonin Immunoas < 0.05 PD Medical Decision Making ED course ED course: Presents with 2 days of worsening dyspnea on exertion. Patient with crackles in the bilateral lower lobes. Is unclear if she has a history of CHF or not. She is in A-fib with heart rates in the low 100. I wonder if she has developed CHF from her elevated heart rate from A-fib. I will check labs, ECG, and chest radiograph. Chest radiograph interpreted me as no acute cardiopulmonary disease. I then sent the patient for a PE study given history of A-fib and not being on anticoagulation. This showed evidence of fluid overload. I then ordered 40 mg furosemide IV, and she had minimal urine output. I then ordered 60 mg furosemide IV. Heart rate was controlled with 5 mg IV metoprolol, 50 mg oral metoprolol succinate, and 500 mcg digoxin. I spoke to Dr. Basilio at [facility], patient does not need transfer and can be managed here. We will hold her in the ER until the AM as we have no beds. Care was signed out to nighttime physician Dr. Pathak as the patient will be holding until the morning for inpatient bed. Critical Care Critical Care Provided: Yes Time(min): 45 Comments: a fib RVR, CHF exacerbation, hypoxemia Time Includes: Direct patient care, Review records, Reassess patient, Document care, Coordinate care, Medical consult, Family consult for tx dec and See progress note Data interpretation: Labs, Pulse ox and CXR Discharge Plan Discharge Clinical Impression: Acute exacerbation of CHF (congestive heart failure), Atrial fibrillation with rapid ventricular response Prescriptions: No Action mirtazapine 15 mg tablet 15 mg PO DAILY PM Qty: 90 3RF omeprazole 20 mg capsule,delayed release(DR/EC) See Rx Instructions .ROUTE .COMPLEX Qty: 180 3RF Dose Instruction: TAKE 1 CAPSULE TWICE DAILY Rx Instructions: TAKE 1 CAPSULE TWICE DAILY losartan 100 mg tablet See Rx Instructions .ROUTE .COMPLEX Qty: 45 3RF Dose Instruction: TAKE 1/2 TABLET ONCE DAILY Rx Instructions: TAKE 1/2 TABLET ONCE DAILY sertraline 25 mg tablet See Rx Instructions .ROUTE .COMPLEX Qty: 90 3RF Dose Instruction: TAKE 1 TABLET ONCE DAILY INTHE MORNING FOR ANXIETY Rx Instructions: TAKE 1 TABLET ONCE DAILY INTHE MORNING FOR ANXIETY tramadol 50 mg tablet 50 mg PO BID PRN (Reason: pain) Qty: 180 1RF Rx Instructions: for pain metoprolol tartrate 50 mg tablet 50 mg PO BID Qty: 180 3RF Rx Instructions: for a fib and blood pressure Print Language: Nepali Stand Alone Forms: PCP List
[2025-05-14 16:46] LABS: HCT - HEMATOCRIT 47.0 % (37.0-47.0); HGB - HEMOGLOBIN 15.1 g/dL (12.0-16.0); MEAN PLATELET VOLUME 9.6 fL (7.9-10.8); NRBC ABSOLUTE COUNT (AUTO) 0.00 x10^3/uL; NUCLEATED RED BLOOD CELLS AUTO 0.0 /100WBC; PLT - PLATELET COUNT 142 10^3/uL (130-450); RED CELL DISTRIBUTION WIDTH 16.7 % (12.0-15.0)
--- NOTE | 2025-05-14 16:56 | XRAY Report ---
PROCEDURE: XR Chest 1V INDICATIONS: cough, hypoxemia TECHNIQUE: One view of the chest was acquired. COMPARISON: None. FINDINGS: Surgical changes and devices: None. Lungs and pleura: No pleural effusions or pneumothorax. There is bibasilar scarring/atelectasis without focal consolidation. Mediastinum: Mediastinal contours appear normal. Heart size is normal. Bones and chest wall: No suspicious bony lesions. Overlying soft tissues appear unremarkable. IMPRESSION: No acute cardiopulmonary process. Reviewed by: Zainab Barone MD on 05/14/2025 3:54 PM AKDT Approved by: Zainab Barone MD on 05/14/2025 3:54 PM AKDT Station ID: [id number]
[2025-05-14 17:23] LABS: ALT ALANINE AMINOTRANSFERASE 13 IU/L (10-60); AST ASPARTATE AMINOTRANSFERASE 32 IU/L (10-42); BUN - BLOOD UREA NITROGEN 16 mg/dL (6-20); CARBON DIOXIDE - CO2 26 mmol/L (21-32); CREATININE 0.9 mg/dL (0.6-1.3); GFR - MDRD 59 (>89)
--- NOTE | 2025-05-14 18:17 | CT Report ---
PROCEDURE: CT Angio Chest INDICATIONS: dyspnea, hypoxemia CONTRAST: Omni 300 80mL TECHNIQUE: After the administration of intravenous contrast, 2 mm axial images were acquired from the pulmonary apices to the posterior costophrenic angles during the arterial phase. In addition, 1 mm lung kernel and 5 mm soft tissue kernel reconstructions were performed. 3-dimensional coronal oblique maximum intensity projection (MIP) reformats, 8 mm axial MIP, and 5 mm coronal and sagittal MPR reformats were then performed through the thorax. For radiation dose reduction, the following was used: automated exposure control, adjustment of mA and/or kV according to patient size. COMPARISON: None. FINDINGS: Image quality: Excellent. Large vessels: No filling defects within the opacified pulmonary arteries, accounting for motion and contrast timing. No evidence of acute aortic syndrome. The ascending aorta measures 4.1 cm in the AP dimension on this noncardiac-gated exam.. Lungs and pleura: There is scattered groundglass opacity throughout the lungs with interlobular septal thickening and subpleural reticulation at the bases. There is no focal consolidation or effusion. No pneumothorax. No suspicious pulmonary nodules which require follow up. Mediastinum: Heart size is enlarged. No pericardial effusion. No mediastinal adenopathy by size criteria. Chest wall and lower neck: Thyroid is unremarkable. No axillary or supraclavicular adenopathy by size. Bones: No aggressive osseous abnormality. Upper Abdomen: Is hernia.. IMPRESSION: No pulmonary embolus. Constellation of findings consistent with cardiogenic pulmonary edema. Underlying pulmonary disease is not excluded but is considered less likely. Reviewed by: Zainab Barone MD on 05/14/2025 5:16 PM MARISOL Approved by: Zainab Barone MD on 05/14/2025 5:16 PM AKVICTORIANO Station ID: [id number]
[2025-05-14] MEDS: FUROSEMIDE 40 MG/4 ML VIAL IVP STA ×2 (18:32→19:42)
[2025-05-14] MEDS: METOPROLOL SUCCINATE 50 MG TABLET PO ONE (20:28)
[2025-05-14] MEDS: METOPROLOL 5 MG/5 ML VIAL IVP STA ×2 (20:31→20:55)
[2025-05-14] MEDS: DIGOXIN 500 MCG/2 ML AMP IVP STA (21:13)
--- NOTE | 2025-05-14 22:26 | ED Physician Documentation ---
ED Addendum Addendum Addendum: I received signout/turnover of care on this patient from Dr. Gunn; please see his note for complete H&P. No issues on my overnight shift; patient held in ED overnight awaiting bed availability. Care of patient turned back over to Dr. Gunn at end of my shift. Discharge Plan Discharge Clinical Impression: Acute exacerbation of CHF (congestive heart failure), Atrial fibrillation with rapid ventricular response Prescriptions: No Action mirtazapine 15 mg tablet 15 mg PO DAILY PM Qty: 90 3RF omeprazole 20 mg capsule,delayed release(DR/EC) See Rx Instructions .ROUTE .COMPLEX Qty: 180 3RF Dose Instruction: TAKE 1 CAPSULE TWICE DAILY Rx Instructions: TAKE 1 CAPSULE TWICE DAILY losartan 100 mg tablet See Rx Instructions .ROUTE .COMPLEX Qty: 45 3RF Dose Instruction: TAKE 1/2 TABLET ONCE DAILY Rx Instructions: TAKE 1/2 TABLET ONCE DAILY sertraline 25 mg tablet See Rx Instructions .ROUTE .COMPLEX Qty: 90 3RF Dose Instruction: TAKE 1 TABLET ONCE DAILY INTHE MORNING FOR ANXIETY Rx Instructions: TAKE 1 TABLET ONCE DAILY INTHE MORNING FOR ANXIETY tramadol 50 mg tablet 50 mg PO BID PRN (Reason: pain) Qty: 180 1RF Rx Instructions: for pain metoprolol tartrate 50 mg tablet 50 mg PO BID Qty: 180 3RF Rx Instructions: for a fib and blood pressure Print Language: Welsh Stand Alone Forms: PCP List
[2025-05-14] MEDS: APIXABAN 5 MG TABLET PO SCH (22:41)
--- NOTE | 2025-05-15 07:37 | ED Physician Documentation ---
ED Addendum Addendum Addendum: I am receiving care of this patient from nighttime physician Dr. Pathak. I did see her yesterday and I am familiar with her need for admission for A-fib RVR and CHF exacerbation requiring diuresis. She is awaiting an inpatient bed. I have ordered 125 mcg of digoxin and 60 mg IV furosemide for this morning. She is on Eliquis. She is on 50 mg metoprolol succinate twice daily. Patient was ultimately admitted observation to the hospital for A-fib RVR and CHF exacerbation leading to hypoxemic respiratory failure. Discharge Plan Discharge Patient Disposition: ED Place in Observation Clinical Impression: Acute exacerbation of CHF (congestive heart failure), Atrial fibrillation with rapid ventricular response Interventions: ED Admission Assessment Last Done: 05/15/25 12:50 Vitals documented within 30 minutes of discharge?: Yes
[2025-05-15] MEDS: FUROSEMIDE 40 MG/4 ML VIAL IVP STA (08:11)
[2025-05-15] MEDS: DIGOXIN 125 MCG TABLET PO STA (08:15)
[2025-05-15] MEDS: METOPROLOL SUCCINATE 50 MG TABLET PO SCH (08:15)
[2025-05-15] MEDS ORDERED: NON FORMULARY MED (Omeprazole 20 mg capsule,delayed release(DR/EC)) SCH (08:15)
[2025-05-15] MEDS: SERTRALINE 25 MG TABLET PO SCH (09:10)
[2025-05-15] MEDS: PANTOPRAZOLE 40 MG TABLET PO SCH (09:10)
--- NOTE | 2025-05-15 11:38 | HISTORY & PHYSICAL EXAMINATION ---
Chief Complaint Chief Complaint Chief Complaint: Shortness of breath History of Present Illness Admitted From Admitted From:: Home via EMS History Obtained From [facility] History obtained from: ER provider Exam Limitations: None History of Present Illness HPI Comment/Other: She is 89 years old and has a history of atrial fibrillation for an unknown length of time. Decades. She does not know. She has a remote history of seeing a turbine mechanic years ago but has not seen one recently even though referrals have been made. She says that she just did not want to face the effort of the visit or to be told bad news. She knows that something is wrong with her heart but really does not want to deal with it. An echo in October 2017 had an ejection fraction of 65 to 70%. A moderately large left atrium. Mild aortic stenosis with peak/mean pressures of 22 mmHg / 11 mmHg and a valve area of 1.17 cm. She had moderate tricuspid regurgitation at that time and RVSP was 32. Sinus rhythm. She had another echo done June 2020. EF 60 to 65%. Aortic stenosis with peak/mean pressure gradients of 19 mmHg / 10 mmHg. Valve area 1.39 cm. Mild mitral regurgitation, mild tricuspid regurgitation and RVSP 32 mmHg. Left atrial SV index was 70 mL/m. Severe increase in volume. Sinus rhythm. Third echo August 2022. Mild concentric left ventricular hypertrophy. EF 60 to 65%. Right ventricle normal. Right ventricular systolic function normal. Aortic stenosis with peak/mean pressure gradient of 22 mmHg / 12 mmHg. Severe left atrial enlargement. Valve area 1.34 cm. Sinus rhythm. Fourth echocardiogram July 2024. Atrial fibrillation for the first time mention. Sigmoidal shaped septum with focal hypertrophy of the basal septum without obstruction. EF 50 to 55. Right ventricle normal. Moderate increased left atrial volume. Severe right atrial enlargement. Aortic valve moderately to severely calcified. Moderate aortic stenosis. Moderate mitral regurgitation. Mild to moderate tricuspid regurgitation. RVSP 39 mmHg. Atrial fibrillation identified in June 2024. Started on metoprolol and aspirin. She was to follow-up in 3 months. Echocardiogram was done July 2024 and referral made to cardiology at that time but the patient had not been able to follow through by December 2024. With her December 2024 visit she was 117 pounds. With her follow-up visit March 2025, she still had not followed up with cardiology referral. No weight noted with that visit. With today's visit in the ER she is 122.4 pounds. She presents by ambulance because she has been having increasing shortness of breath that is causing a cough for the last 3 days. Is getting harder and harder for her to do simple things like walk across the room. O2 sat was 87% on room air when EMS arrived. She required 4 L to bring her up to 98% on room air. She arrived in the afternoon of the . Evaluated and felt that she needed admission but we had no beds. Patient was kept in the emergency room overnight and I was asked to see her this morning. She denies fever, chills, vomiting, burning with urination. She lives at [facility] which is an [facility]. When she presented temperature was 37.2, heart rate 118, respirations 16, blood pressure 147/103. EKG had atrial fibrillation. Crackles bilaterally in both lungs. ER provider feels that she developed CHF from RVR. The first provider gave her 40 mg of Lasix IV. Then she was given 60 mg of Lasix IV later on and this morning she has been given another 60 mg of Lasix IV. She is received metoprolol IV as well as metoprolol p.o. And this morning she was given digoxin IV and started on oral digoxin. She still has crackles. Still requiring oxygen. Her heart rate is finally dropped into the 80s and 70s but she still needs diuresis for probable congestive heart failure secondary to RVR. On review of systems she tells me that she wears glasses. Has old cataracts. Has problems with her hearing. Lately the right ear just always feels full and she will sometimes get waves of dizziness with the room rotates violently. She has seen ENT and not much can be done. The coughing and shortness of breath are new. No fever or chills. Denies chest pain, palpitations, jaw pain or arm pain. Denies leg edema. She has no changes in bowel or bladder habits. Eats well. Minimal indigestion as long as she takes her pills. Hurts all the time from osteoarthritis but she is fatalistic and says "it is part of getting old". No new lesions. Denies weight changes. Has cold intolerance but she says that is just normal for being in a lady. She feels like her memory is still relatively good. No history of syncope, seizures. She is sad about getting older but denies being severely depressed or having suicidal ideation.In the past she was starting to slow down and used a cane. Then she used a walker. In the last month or 2 she has been using a wheelchair. As such, I am placing the patient in observation status. She has partially responded to ER management but still needs diuresis to be able to go home and get off oxygen Meds/Allgy Home Medications Ambulatory Orders Medication Instructions Recorded Confirmed metoprolol tartrate 50 mg tablet 50 mg PO BID #180 tab s 10/10/24 05/15/25 tramadol 50 mg tablet 50 mg PO BID PRN pain #180 t abs 01/31/25 05/15/25 losartan 100 mg tablet 50 mg PO DAILY 05/15/2510/08 omeprazole 20 mg capsule,delayed 20 mg PO BID 05/15/25 05/15/25 release sertraline 25 mg tablet 25 mg PO DAILY 05/15/2510/08 Allergies Allergies Allergy/AdvReac Type Severity Reaction Status Date / Time celecoxib (From Celebrex) Allergy Intermediate Itching Verified 05/14/25 15:54 Penicillins Allergy Rash Verified 05/14/25 15:54 rofecoxib (From Vioxx) Allergy unkown Verified 05/14/25 15:54 Sulfa (Sulfonamide Allergy Rash Verified 05/14/25 15:54 Antibiotics) gabapentin AdvReac Intermediate Diarrhea Verified 05/14/25 15:54 PFSH Active Problems All Active Problems (Updated 05/15/25 @ 17:03 by Deandra Noel MD) Do not resuscitate (Acute) Macrocytosis (Acute) Acute heart failure with preserved ejection fraction (HFpEF) (Acute) Atrial fibrillation with rapid ventricular response (Acute) Acute exacerbation of CHF (congestive heart failure) (Acute) Sacral back pain (Acute) Atrial fibrillation (Acute) Anxiety and depression (Acute) GERD (gastroesophageal reflux disease) (Acute) Hypertension, essential, benign (Acute) Tremor, essential (Acute 01/23/09) Renal artery stenosis (Acute 12/25/09) Irritable bowel syndrome (Acute 08/27/11) Urge incontinence (Acute 08/27/11) Hyperlipidemia, mixed (Acute 10/25/12) Carotid stenosis (Acute 01/22/10) Aortic stenosis (Acute 06/14/20) Anemia, iron deficiency (Acute 10/24/11) Allergic rhinitis (Acute 12/26/08) Actinic keratosis (Acute 05/30/13) Medical History Medical History (Updated 05/15/25 @ 17:03 by Deandra Noel MD) Depression with anxiety History of DVT (deep vein thrombosis) Osteoporosis (01/23/09) History of fall lost balance in shower, multiple rib fx, sent to Prov. 2017. Fell again in home March 2025. No fx. Chronic low back pain (10/03/08) Knee pain, bilateral (01/12/24) Cerumen impaction (02/26/23) Surgical History Surgical History (Updated 05/15/25 @ 12:06 by Deandra Noel MD) H/O oophorectomy H/O umbilical hernia repair History of repair of hiatal hernia H/O cataract removal with insertion of prosthetic lens History of appendectomy (09/14/83) Family History Family History (Updated 05/15/25 @ 15:43 by Deandra Noel MD) Father No problems noted. Mother Diabetes Son MVA (motor vehicle accident) Daughter Well adolescent visit Daughter Well adolescent visit Social History Social History (Updated 05/15/25 @ 17:13 by Deandra Noel MD) Smoking Status: Former smoker If you are a former smoker, when did you quit? (Date/Year): 1984 Number of Years Smoked: 25 Do you dip or chew tobacco?: No Do you vape?: No Living arrangement: Assisted living Marital Status: Living Condition: Alone Support Person: Yes Relationship Notes: daughter in [place] is DPOA, not in contact with daughter in [place] Living Situation Details: Lived in [facility] since 12/2015. Has a Durable Power of Tax Agent for Health Care?: Yes Name / Relationship: Daughter Leslie Burrell is DPOA DPOA on file?: No Physical Activity: other Level: Assisted Home Mobility Equipment: Wheelchair Do you feel safe in your home environment?: Yes History of physical, verbal, emotional, or financial abuse?: No ETOH Use: None Substance Use: denies use Are you sexually active?: No Retired: Yes POLST Patient has POLST: Yes POLST Questions POLST CPR Status: Do Not Attempt Resuscitation (DNAR) / Allow Natural POLST Level (Do not Attempt) Level of Medical Intervention: Selective Treatment Review of Systems Status of ROS: 10 or more systems reviewed and unremarkable except as noted in history and below Exam Exam Vital Signs: Vital Signs x48h Temp Pulse Pulse Resp BP BP Pulse Ox 05/15/25 16:11 37.1 C 74 16 93/54 L 95 05/15/25 14:58 71 05/15/25 14:09 36.2 C L 70 18 98/62 96 05/15/25 12:50 81 14 89/59 L 91 L 05/15/25 12:00 82 14 99/69 96 05/15/25 11:00 85 12 110/68 95 05/15/25 10:00 65 14 109/69 94 O2 Flow Rate 05/15/25 16:11 05/15/25 14:58 05/15/25 14:09 0 05/15/25 12:50 1 05/15/25 12:00 1 05/15/25 11:00 3 05/15/25 10:00 3 Exceedingly pleasant elderly female who looks her 89 years of age. 5 foot tall. 50.5 kg. Wearing glasses. Wearing hearing aids. Oriented to person, place, time. Trying to figure out what I mean by her heart problem. Constitutional normal general appearance Comfortable at rest. When I sit her up, have her speak to me at length, she starts getting a little tachypneic. HENMT normocephalic and head/scalp atraumatic Eyes PERRL and EOMs intact bilaterally Neck/C-Spine supple Chest inspection of chest normal Respiratory breath sounds equal bilaterally Normal respiratory effort at rest, slightly increased with exertion, crackles at both lung bases Cardiovascular Irregularly irregular. Holosystolic murmur. Diastolic murmur. 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 In reviewing those echocardiograms, what can see the gradual progression of her aortic stenosis, mitral regurg and tricuspid regurg. She herself seems very equivocal about getting treatment for her valvular heart disease. To the point that she did not do appointments for the referrals that started last year. I think that her heart failure is a combination of 2 faster heart rate from A- fib with RVR, superimposed on chronic valvular heart disease. My goal is to diurese her to the point that she can go off oxygen. And slow down her heart rate. She still tells me that she is not interested in following up with a cardiac referral. She is already improving when I am examining her on MedSurg. Still a little bit tachypneic. Observation status. Hopefully discharge tomorrow on metoprolol 100 mg. Eliquis. Lasix 20 mg a day. After that she may not follow through with cardiology referral. I did ask which daughter she wanted me to contact. She says that she is not in good standing with her daughter Mili Forde in [place]. She would prefer that I call her daughter Leslie Burrell in [place] but she did not bring her phone with her and she cannot remember Leslie's phone number. I will verify that contact with her face sheet from [facility]. (2) Atrial fibrillation with rapid ventricular response: Plan: Already slow down from ER intervention. Heart rate is now in the 70s and 80s. I have ordered as needed metoprolol IV push if her heart rate gets greater than 110 for 5 minutes. I have also ordered another dose of digoxin 0.25. (3) Aortic stenosis: Plan: Is gone from mild to moderate. Not severe. Aortic valve area by continuity equation still has are at 1.34 cm. Most likely can to be medically managed at the age of 89. She is not interested in intervention. She has been dragging her feet with regards to even getting referred (4) Macrocytosis: Plan: Check B12, folic acid, TSH. If she becomes anemic she may need to be considered for a bone marrow evaluation for myelodysplastic syndrome. But at age 89, this patient may opt to avoid that evaluation and treatment plan (5) Do not resuscitate: Plan: Her primary care provider notes state that the patient has a POLST. We do not have it in our EMR. I will ask her primary care provider for a copy of that so that it stays in our EMR. She is a DNR. Lab Results Lab results reviewed: Yes 05/14/25 16:41 05/14/25 16:41 EKG Results EKG Interpreted Independently: No Core Measures Anticipated LOS I expect patient to be DC'd or transferred within 96 hours.: Yes DVT/VTE - Prophylaxis VTE/DVT Prophylaxis med ordered at admit?: Yes
[2025-05-15] MEDS ORDERED: SODIUM CHLORIDE FLUSH 0.9% 10 ML SYRINGE IVP PRN (13:14)
[2025-05-15] MEDS ORDERED: ONDANSETRON ODT 4 MG TABLET TL PRN (13:14)
[2025-05-15] MEDS ORDERED: METOPROLOL 5 MG/5 ML VIAL IVP PRN (13:14)
[2025-05-15] MEDS ORDERED: ACETAMINOPHEN 325 MG TABLET PO PRN (13:14)
[2025-05-15] MEDS ORDERED: ONDANSETRON 4 MG/2 ML VIAL IVP PRN (13:14)
[2025-05-15] MEDS ORDERED: oxyCODONE 5 MG TABLET PO PRN (13:14)
--- NOTE | 2025-05-15 14:11 | PHARMACY PROGRESS NOTE ---
Best Possible Medication History Admit Date and Time: 05/15/25 [id number] Home Medications Medication Instructions Recorded Confirmed Type metoprolol tartrate 50 mg tablet 50 mg PO BID #180 tab s 10/10/24 05/15/25 Rx tramadol 50 mg tablet 50 mg PO BID PRN pain #180 t abs 01/31/25 05/15/25 Rx losartan 100 mg tablet 50 mg PO DAILY 05/15/2510/08 History omeprazole 20 mg capsule,delayed 20 mg PO BID 05/15/25 05/15/25 History release sertraline 25 mg tablet 25 mg PO DAILY 05/15/2510/08 History Processed by: Pharmacy Medications reviewed in ED?: Yes Medication History completed: Yes Patient Interview: Completed Secondary Source(s): Physician records, Pharmacy records, Insurance records and Facility MAR as ONLY source [facility] Statement: As the person ultimately responsible for medication therapy, providers are able to order a medication from an existing home medication list in [facility] via the "Reconcile Routine" prior to Confirmation of that medication by direct support professional. Such practice is discouraged except when the physician, in their clinical judgment, deems that a medical need exists for a medication without regard to previous use.
[2025-05-15] MEDS: DIGOXIN 500 MCG/2 ML AMP IVP STA (14:58)
--- NOTE | 2025-05-15 17:45 | ADVANCE CARE PLANNING NOTE ---
Advance Care Planning Planning Encounter Date: 05/15/25 Time: 17:41 Purpose: Verify POLST status and start goals of care discussion Parties in Attendance: Patient in her room, with hospitalist. Then separate phone call with daughter and DPOA/ILDAA Leslie Zhang at [phone] Decisional Capacity of the Patient: Daughter states that she has not invoked her power of deputy attorney general privilege. Mom still makes most of her own decisions. Diagnosis for Encounter (1) Acute heart failure with preserved ejection fraction (HFpEF): (2) Atrial fibrillation with rapid ventricular response: (3) Aortic stenosis: Summary: Patient has known aortic stenosis for 7 years. Gradually getting worse. She does not desire intervention. (4) Macrocytosis: (5) Do not resuscitate: Encounter Subjective/Patient's Story: She is 89 years old, and has been living in an assisted living facility since December 2015. She said she was just getting too slow and too overwhelmed and the big house she was living in. She could not keep up with the maintenance in the yard work and moved to the assisted living facility at that point in time. She says that for the most part it has been acceptable. She does not like the new management very much and she finds that they are new policy that all residents must now have their medicines given to them at a $500 charge is not to her liking. She recognizes that she has been failing over the last few months. She says that she used to need help with a cane. Then she went to a walker. And she knows it is bad when the last 2 months she has had to use a wheelchair. She just does not have the endurance she used to have. She has dyspnea on exertion. She started to need more help with dressing. And it is difficult for her to get to the dining room. She also acknowledges that she has something wrong with her heart. She is vague about that. Cannot quite quantify what it is but that her [place] primary care provider has been trying to get her to see a vice president medical affairs. She does not want to see 1. She saw vice president medical affairs in [place] decades ago but does not want to see 1 now. She recognizes that this could be to her detriment, but she feels that she is just getting older and that was happening to her is part of that.She does not have a lot of pain. She does have the "normal aches and pains of a little lady". She said she is getting more forgetful but she does not feel that it is too severe yet. I spoke to her daughter and POA, Leslie Zhang who lives in [place]. Ms. Zhang says it is a very difficult conversation to have with mom. They have talked about general medical matters. But they have never sat down and talk to one another about what defines a good quality of life for Ms. Siddiqui. At what point, if at any point, this Ms. Siddiqui want to stop doing interventions to keep her alive if she can no longer maintain independence? Neither one could answer that question. That said they have never thought about it in those terms. And I explained that they have a lot of conversations ahead of them. However Ms. Siddiqui does have a POLST form in her primary care provider office. She is a DO NOT RESUSCITATE if there is no pulse or pressure with limited intervention. Objective/Medical Story: Atrial fibrillation since the fall 2023. Superimposed on a gradually progressive aortic stenosis first noted in October 2017 echo. Subsequent echoes have shown worsening aortic stenosis. Peak/mean pressure gradients started at 19 mmHg / 10 mmHg and are now higher. Her aortic valve was 1.17 cm by area. And most recently was 1.34 cm. She also has tricuspid and mitral regurgitation. She has been referred to cardiology since last fall. But she has deliberately not followed up on that referral. She has been gradually slowing down with regards to endurance. Most recently she had to change to a wheelchair. Other past medical history is that of chronic back pain, anxiety and depression, GERD, hypertension, essential tremor, renal artery stenosis, irritable bowel syndrome with occasional diarrhea, carotid stenosis, iron deficiency anemia, and allergic rhinitis. In the ER the patient is in congestive heart failure due to A-fib with RVR. She is responding to rate lowering agents. She has been placed in observation for diuresis and anticoagulation. Our anticipation is that she may be able to be d ischarged home tomorrow. Goals of Care: She does not know what those are yet. She and her daughter will have to have a conversation and define what makes her happy and, and at what point she does not want to keep him going to her doctor, hospital, or get intervention. She is already saying that she does not want any intervention for her valvular heart disease. She does know that she wants to stay at [facility] if at all possible for the remainder of her life. She reiterates that she is a DO NOT RESUSCITATE Plan: No changes in current management at this time. Her desire to be DO NOT RESUSCITATE will be noted in the chart. I am asking the primary care provider please send a POLST to the hospital. And I am asking the daughter and the patient to sit down and do goals of care conversation for the future. Code Status: Do Not Attempt Resuscitation Time spent on advance care plannin minutes
[2025-05-15] MEDS: SODIUM CHLORIDE FLUSH 0.9% 10 ML SYRINGE IVP SCH (20:50)
[2025-05-15] MEDS: APIXABAN 2.5 MG TABLET PO SCH (20:50)
[2025-05-16 04:50] LABS: HCT - HEMATOCRIT 46.5 % (37.0-47.0); HGB - HEMOGLOBIN 15.6 g/dL (12.0-16.0); MEAN PLATELET VOLUME 9.6 fL (7.9-10.8); NRBC ABSOLUTE COUNT (AUTO) 0.00 x10^3/uL; NUCLEATED RED BLOOD CELLS AUTO 0.0 /100WBC; PLT - PLATELET COUNT 154 10^3/uL (130-450); RED CELL DISTRIBUTION WIDTH 15.8 % (12.0-15.0)
[2025-05-16 05:17] LABS: BUN - BLOOD UREA NITROGEN 21.0 mg/dL (6-20); CARBON DIOXIDE - CO2 27.0 mmol/L (21-32); CREATININE 1.0 mg/dL (0.6-1.3); GFR - MDRD 52.0 (>89)
[2025-05-16] MEDS: COD LIVER OIL/ZINC OXIDE 113 GM TUBE TOP PRN (06:12)
[2025-05-16] MEDS: DIGOXIN 125 MCG TABLET PO SCH (08:51)
--- NOTE | 2025-05-16 13:02 | PT Plan of Care ---
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 2017. Fell again in home March 2025. No fx. Chronic low back pain (10/03/08) Knee pain, bilateral (01/12/24) Cerumen impaction (02/26/23) Surgical History (Updated 05/15/25 @ 12:06 by Deandra Noel MD) H/O oophorectomy H/O umbilical hernia repair History of repair of hiatal hernia H/O cataract removal with insertion of prosthetic lens History of appendectomy (09/14/83) Assessment Assessment Pt is an 89yo F referred for PT eval d/t deconditioning and limited mobility. Admitted with HF, Afib c RVR. Pt lives at [facility] and reports she is Krist[place]er transferring into a wc at baseline. She has only recently started using a wc and prior to this walked with a walker. Reports she has been getting gradually weaker and no longer able to tolerate walking and gripping walker handles. Please see medical record for further PMH. Cleared for eval by hospitalist. Upon PT eval, met supine in bed vitals WNL and agreeable to participate. Transfers to EOB, STS and short distance shuffle steps from EOB to b/s chair all with SBA to CGA . Pt prefers to transfer without a walker d/t limited wire preparation machine tender from BL hand arthritis. Notable scoliosis and benefits from pillow support in seated. Pt presenting at or near recent baseline . She reports preference to return to [facility] and does not present with significant acute PT need. When medically clear, PT rec dc back to [facility] with continued assistance for ADLs. She is appropriate for HH is she would like to resume short distance walking with FWW. Goals Improve bed mobility to: Independent Improve supine to sit to: Independent Improve sit to stand to: Modified Independent Improve pivot transfer ability Modified Independent to: Improve sit to supine to: Modified Independent PT Plan of Care Frequency 1-2x/day Duration Until discharge Discharge Recommendations Discharge Location Previous Living Situation Support/Services Needed Home Health P.T. Other has recommended DME Transport Needs at Discharge wc van vs POV
[2025-05-16 16:52] VITALS: BP 105/66; TEMP 97.2; O2SAT 94
[2025-05-19 01:07] LABS: FOLATE HEMOLYSATE 572.0 ng/mL (Not Estab.); FOLATE RBC 1225 ng/mL (>498)
== END 2025-05-16 16:25 | disposition home or self-care (01) ==
LOC: MS2 15:44 → ED 15:44 → MS2 05-15 12:51
PROVIDERS: ADMIT Specialist; ATTEND Specialist
DX: D75.89 Other specified diseases of blood and blood-forming organs; M54.50 Low back pain, unspecified; Z87.891 Personal history of nicotine dependence; Z66 Do not resuscitate; I08.3 Combined rheumatic disorders of mitral, aortic and tricuspid valves; I50.31 Acute diastolic (congestive) heart failure; F32.A Depression, unspecified; I11.0 Hypertensive heart disease with heart failure; G89.29 Other chronic pain; K21.9 Gastro-esophageal reflux disease without esophagitis; F41.9 Anxiety disorder, unspecified; Z79.899 Other long term (current) drug therapy; I48.91 Unspecified atrial fibrillation